=== PATIENT | female | born 2000 | race Two or more races ===

== ENCOUNTER 2024-11-02 12:37 | Inpatient (IN) | payer MEDICAID, SELFPAY ==
[2024-11-02 12:38] VITALS: PULSE 111; RESP 14; O2SAT 99
[2024-11-02 12:44] VITALS: BP 123/61; PULSE 117; RESP 20; TEMP 36.4; O2SAT 97
[2024-11-02 12:45] VITALS: BMI 26.6
--- NOTE | 2024-11-02 12:45 | XR_ITS ---
Examination: CT brain head without contrast. 2-D sagittal coronal reconstructions Date and time of exam:November 02, 2024, 1356 hrs. Indications: Seizure activity today CTDI: vol (mGy):14.8 DLP: (mGycm):350 Technique: Multiple CT axial sections of the brain have been obtained, 5 mm slice thickness. Contrast has not been administered. 2-D sagittal, coronal reconstructions have been obtained Low dose protocols were performed. One or more of the following dose reduction techniques were used; automated exposure control, adjustment of the mA and/or KV according to patient size, use of iterative reconstruction technique. Findings: No significant ventricular enlargement. Intra-axial or extra-axial hemorrhage density is not seen. No mass effect or midline shift Basal cisterns are not remarkable. Fourth ventricle is midline. Cranial vault intact. Impression: Negative for acute hemorrhage, mass effect or midline shift
--- NOTE | 2024-11-02 12:45 | EKG_ITS ---
[facility] Test Date: 2024-11-02 Pat Name: JERI ROTH Department: Room: - Gender: Female Cytopathology Technologist: : 2000 Requested By: Jose Luis Elizalde Order Number: [id number] Reading MD: Jose Luis Elizalde Measurements Intervals Gibbs Rate: 115 P: 51 MA: 153 QRS: 40 QRSD: 73 T: 18 QT: 327 QTc: 453 Interpretive Statements SINUS TACHYCARDIA POSSIBLE LEFT ATRIAL ENLARGEMENT [-0.1mV P-WAVE IN V1/V2] NONSPECIFIC ST & T-WAVE ABNORMALITY ABNORMAL RHYTHM ECG Compared to ECG 10/05/2018 07:51:43 T-wave abnormality now present Sinus rhythm no longer present Sinus arrhythmia no longer present /store/S0/[id number].pdf
--- NOTE | 2024-11-02 12:45 | XR_ITS ---
Examination: CT cervical spine without contrast 2-D sagittal reconstructions 2-D coronal reconstructions 3-D reconstructions. Exam date and time:November 02, 2024, 1359 hrs. Indications: Seizure activity today with neck pain CTDI:vol (mGy) 14.8 DLP: (mGycm) 315 Technique: Multiple 2 mm axial sections of the cervical spine have been obtained. The coronal and sagittal reconstructions have been obtained. 3-D reconstructions have been obtained. Low dose protocols were performed. One or more of the following dose reduction techniques were used; automated exposure control, adjustment of the mA and/or KV according to patient size, use of iterative reconstruction technique. Findings: Axial sections demonstrate intact base of the skull. C1 exhibit satisfactory relationship to the odontoid. No acute cervical vertebral body fracture seen. Alignment posterior spinous processes satisfactory. Impression: No acute cervical fracture.
--- NOTE | 2024-11-02 12:56 | XR_ITS ---
Examination: Wrist, right 2 views Technique: Wrist AP, lateral 2 views Date and time of exam: November 02, 2024, 1315 hrs. Indications: Patient fell today with injury to the wrist, wrist pain Findings: No fracture or dislocation No foreign body Impression: No fracture or dislocation.
--- NOTE | 2024-11-02 12:56 | XR_ITS ---
Examination: AP chest single view Technique one AP portable semiupright chest single view Date and time: November 02, 2024, 1320 hrs. Comparison April 03, 2020. Indications: Patient fell today with injury to the chest, chest pain. Findings: Normal heart size. The film is rotated RPO. No pneumothorax. Bones of the shoulders, clavicles, ribs appear intact Impression: No pneumothorax pulmonary contusion or hemothorax.
--- NOTE | 2024-11-02 12:56 | XR_ITS ---
Examination: Right elbow 3 views Technique: Elbow AP, oblique, lateral 3 views Exam date and time: November 02, 2024, 1315 hrs. Indications: Patient fell today with injury to the elbow, elbow pain. Findings: No fracture or dislocation. No foreign body Impression: No fracture or dislocation..
--- NOTE | 2024-11-02 12:56 | XR_ITS ---
Examination: Shoulder,right, 3 views Technique: Shoulder AP internal rotation, AP external rotation, Y view shoulder, 3 views Exam date and time :November 02, 2024, 1315 hrs. Indications: Patient fell today with injury to the shoulder, shoulder pain. Findings: No shoulder fracture or dislocation. No AC joint separation. Impression: No shoulder fracture or dislocation.
[2024-11-02 13:02] LABS: Basophils # (Auto) 0.0 Thou/mm3 (0.0-0.2); Basophils % (Auto) 0 % (0-2.5); Eosinophils # (Auto) 0.2 Thou/mm3 (0.0-0.5); Eosinophils % (Auto) 2 % (0-10); Hematocrit 42.0 % (36.0-46.0); Hemoglobin 14.1 g/dL (12.0-16.0); Immature Granulocytes Auto 0.03 Thou/mm3 (0.00-0.00); Lactate (Lactic Acid) 6.4 mMol/L (0.4-2.0); Lymphocytes # (Auto) 3.1 Thou/mm3 (1.0-4.8); Lymphocytes % (Auto) 31 % (10-50); Mean Corpuscular HGB Conc 33.6 g/dl (31.0-37.0); Mean Corpuscular Hemoglobin 29.1 pg (25.0-35.0); Mean Corpuscular Volume 87 fL (80-100); Monocytes # (Auto) 0.9 Thou/mm3 (0.0-0.8); Monocytes % (Auto) 9 % (0-12); Neutrophils # (Auto) 5.7 Thou/mm3 (1.8-7.7); Neutrophils % (Auto) 57 % (37-80); Nucleated Red Blood Cell # 0.00 Thou/mm3 (0.00-0.00); Nucleated Red Blood Cell % 0 /100 WBC (0); Platelet Count 300 Thou/mm3 (140-440); RDW Standard Deviation 40.5 fL (36.4-46.3); Red Blood Count 4.85 Miln/mm3 (4.00-5.20); White Blood Count 10.0 Thou/mm3 (3.6-11.0)
--- NOTE | 2024-11-02 13:05 | PD.EDADULT ---
ED General RME/HPI General Chief complaint: Seizure Stated complaint: ALTERED Time Seen by Provider: 11/02/24 12:45 Arrival date/time: 11/02/24 12:37 RME / HPI RME / HPI narrative: 24-year-old female with no relevant past medical history was seen in the ER after being brought by ambulance due to seizure-like activity today. Patient was in agonizing pain and was agitated initially, but was able to calm down shortly after. Patient's was at bedside and stated that patient this morning had complained of a headache around 10 AM at [facility] and that subsequently had a fall and they witnessed seizure-like activity. 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 She has also felt very hot for the past few days, but does not recount having a fever or chills. Also states she has been vomiting and diarrhea, but denies abdominal pain. She stated that she started a new medication today to decrease her breast milk production. Patient's last menstrual period was last month on and she had her last child last year. Daughter was sick last week. Patient currently has neck pain, headache, photophobia, and right arm pain. Denies alcohol, drugs, or smoking. Related Data Previous Rx's ?Medication ?Instructions ?Recorded ibuprofen 600 mg tablet 600 mg PO Q6H #30 tabs 12/25/23 Allergies Allergy/AdvReac Type Severity Reaction Status Date / Time bee pollen Allergy Severe Unconscious Verified 12/25/23 09:26 Penicillins Allergy Unknown Verified 12/25/23 09:26 milk AdvReac Severe Diarrhea Verified 12/25/23 09:26 Sulfa (Sulfonamide AdvReac Severe Anaphylaxis Verified 12/25/23 09:26 Antibiotics) Review of Systems Review of Systems Systems Reviewed: All systems reviewed, normal except as documented Past Medical History Past Medical History NEUROLOGIC: Positive Seizures; Negative Neurological Disorders CARDIAC: Negative Cardiac Disorders or Congestive Heart Failure RESPIRATORY: Negative Chronic Obstructive Pulmonary Disease (COPD) or Asthma GASTROINTESTINAL: Negative Gastrointestinal Disorders or Hepatitis GENITOURINARY: Negative Genitourinary Disorders or Renal Disease REPRODUCTIVE: Positive Genital Herpes and Previous Pregnancies (3, 2 children); Negative Pelvic Inflammatory Disease MUSCULOSKELETAL: Negative Musculoskeletal Disorders ENDOCRINE: Negative Endocrine Disorders, Diabetes Mellitus Type 1 or Diabetes Mellitus Type 2 HEMATOLOGIC: Negative Blood Disorders or Sickle Cell Disease PSYCHO/SOCIAL: Positive Post Traumatic Stress Disorder; Negative Psychiatric Problems, Schizophrenia, Recreational Drug Use, Bipolar Disorder, Depression, Anxiety, Behavior Problems, Self-Mutilation, Attention Deficit Disorder, Attention Deficit Hyperactivity Disorder, Depression or Eating Disorder OTHER HISTORY: Positive Chicken Pox; Negative Hospitalization, Autoimmune Disease, Down Syndrome, Autism, Developmental Delay, Shingles, Falls, Blood Transfusions, Blood Transfusion Reaction, Anesthesia Reactions, Organ Transplant, Chemotherapy, Radiation Therapy, Hyperbaric Therapy, MRSA, VRSA, Vancomycin-Resistant Enterococci, Human Immunodeficiency Virus (HIV), Measles, Mumps, Rubella (Citizen [place] Measles), Pertussis, Clostridium Difficile or Cancer Family History FAMILY HISTORY: Positive Family Psychiatric Problems and Family Respiratory Disorders; Negative Family Cardiac Disorders, Family Gastrointestinal Problems, Family Cancer, Family Surgery or Family Anesthesia Reaction Surgical History SURGICAL: Negative Section or Organ Transplant Social History SMOKING STATUS: Never smoker SUBSTANCE USE: former substance user and marijuana (Continue to smoke daily) ED Exam Narrative Physical exam: Gen: A&O X 3, moderate distress HEENT: With eyes closed throughout the exam, NCAT, EOMI, Pupils reactive JULIO CESAR, not icteric. External ears normal. No rhinorrhea. Moist mucous membranes. Neck: Supple, decreased anterior motion due to pain/stiffness, no observable masses. Lungs: No Respiratory distress, clear bilateral. CV: tachycardic, no murmurs. Abdomen: Soft, nondistended, No rebound tenderness. MSK: No joint swelling, pain in R UE and posterior neck with stiffness, no redness, peripheral pulses presents, lumbar with no edema. Skin: No rashes, petechiae, lesions. Neuro: No focal neurological deficits appreciated, sensory and motor intact. Course Quality Measures none Orders Category Date Time Status COVID-19 Screening Questionnaire NOW Care 11/02/24 16:55 Active Decision to Admit X1 Care 11/02/24 16:55 Completed EKG (ED ONLY) *Do not use* NOW Care 11/02/24 12:45 Completed Consult to Neurology / Tele-Neurology Stat Cons 11/02/24 13:[address] cervical spine wo con Stat Exams 11/02/24 12:[address] head/brain wo con Stat Exams 11/02/24 12:45 Completed CXRP [XR chest 1V portable] Stat Exams 11/02/24 12:56 Completed EKG (ED Only) Stat Exams 11/02/24 12:45 Draft XR elbow RT 2V Stat Exams 11/02/24 12:56 Completed XR shoulder RT 1V Stat Exams 11/02/24 12:56 Completed XR wrist RT 2V Stat Exams 11/02/24 12:56 Completed Alcohol, Urine Stat Lab 11/02/24 13:48 Completed Blood Culture (Lab) Stat Lab 11/02/24 17:19 Received CBC [CBC] Stat Lab 11/02/24 12:45 Completed CK [Creatine Kinase] Stat Lab 11/02/24 12:45 Completed CMP [Comprehensive Metabolic Panel] Stat Lab 11/02/24 12:45 Completed Drug Screen,Urine Stat Lab 11/02/24 13:48 Completed FLU A&B [Influenza A & B Rapid Panel] Stat Lab 11/02/24 17:00 Ordered HCG Qualitative,Urine Stat Lab 11/02/24 13:48 Completed HSV1 IgG Type Specific Ab* Stat Lab 11/02/24 17:20 Received HSV2 IgG Type Specific Ab* Stat Lab 11/02/24 17:20 Received Lactate (Lactic Acid) Stat Lab 11/02/24 12:45 Completed Lactic Acid, 3 HR Stat Lab 11/02/24 16:50 Completed Lipase Stat Lab 11/02/24 12:45 Completed Magnesium Stat Lab 11/02/24 12:45 Completed UA [Urinalysis] Stat Lab 11/02/24 13:48 Completed Acyclovir Inj [Zovirax Inj] 770 mg Med 11/02/24 17:00 Active Sodium Chloride 0.9% [Ns] 100 ml IV Q8HR Ketorolac Inj [Toradol Inj] Med 11/02/24 16:42 Discontinued 30 mg IVP X1 ONE Midazolam Inj [Versed Inj] Med 11/02/24 13:01 Active 2 mg IVP Q1HR PRN Morphine Inj Med 11/02/24 16:42 Discontinued 2 mg IVP X1 ONE Morphine Inj Med 11/02/24 15:12 Discontinued 3 mg IVP X1 ONE Ondansetron Inj [Zofran Inj] Med 11/02/24 13:05 Discontinued 4 mg IVP X1 ONE POTASSIUM CHL 10 mEq IVPB [Kcl Ivpb] Med 11/02/24 13:30 Discontinued 10 meq in 100 ml IV Q1H Sodium Chloride 0.9% 1000 ml [Ns] 1,000 ml Med 11/02/24 13:03 Discontinued IV 999 mls/hr Vancomycin Pharmacy to Dose Med 11/02/24 16:45 Active 1 each IV QDAY PRN Vancomycin/Water 1Gm Ivpb 200 ml Med 11/02/24 17:00 Active IV X1 cefTRIAXone [Rocephin] 2 gm Med 11/02/24 21:00 Active SODIUM CHLORIDE 0.9% (Popper) [Ns 0.9% (P)] 50 ml IV BID Vital Signs Vital signs: Vital Signs Temperature 97.5 F 11/02/24 12:44 Pulse Rate 117 H 11/02/24 12:44 Respiratory Rate 20 11/02/24 12:44 Blood Pressure 123/61 11/02/24 12:44 Pulse Oximetry (%) 97 11/02/24 12:44 Oxygen Delivery Method Room Air 11/02/24 12:44 Discharge Plan Plan Patient Disposition: Admit Acute Care w/in Hospital Prescriptions/Referrals Prescriptions/Med Rec: No Action ibuprofen 600 mg tablet 600 mg PO Q6H Qty: 30 0RF Referrals: No Primary/Family,Physician [Primary Care Provider] - In 1 week Problem List Clinical Impression: Meningeal sign, Seizure-like activity Patient/Caregiver Discharge Instructions Print Language: Hebrew Stand Alone Forms: [employer] Award Info., Patient Portal Info Letter MDM Narrative [facility] hospital course: 13:03: Ordered IV fluids and Zofran. 13:09: Consulted teleneurology given patient's seizure-like activity and findings concerning for meningitis. 13:30: Labs and imaging were reviewed. Potassium was low therefore repleted with IV potassium 40 mg. Imaging did not reveal any fractures or intracranial pathology. 15:09: Spoke with teleneurology who stated to proceed with lumbar puncture pending patient's symptoms of stiff neck with photophobia was concerning for possible meningitis therefore had to be rule out as well as subarachnoid hemorrhage had to be rule out. Advised to discontinue bromocriptine as it could have been because of possible seizure-like activity. Also to avoid any medication that can lower seizure threshold. Additional imaging recommend included MRI and EEG. 15:12 ordered morphine. 15:40: Attempted lumbar puncture at the patient was positioned and prepared. Was unsuccessful, started acyclovir, ceftriaxone, and vancomycin for empirical treatment of meningitis. 16:42: Ordered 2 mg morphine and 30 mg Toradol for patient's headache and neck pain. 16:55: Spoke with IM team for admission. Will see patient for admission. Case disclosed with Attending Dr. Kenroy Elizalde PGY2 Disclaimer: Even though this this note was dictated by speech recognition and even though it was carefully revised there may still be minor errors in coke production heater due to voice recognition software. Medication Administration(s) Medication Administration History Acyclovir Sodium 770 mg/ (Sodium Chloride) 115.4 mls @ 99.986 mls/hr IV Q8HR ALDEN Stop: 11/09/24 16:59 Last Admin: 11/02/24 17:27 Dose: 99.986 mls/hr Documented By: ER Ceftriaxone Sodium 2 gm/ (Sodium Chloride) 50 mls @ 100 mls/hr IV BID ALDEN Stop: 11/09/24 20:59 Vancomycin HCl (Vancomycin/Water 1gm Ivpb) 200 mls @ 120 mls/hr IV X1 ONE Stop: 11/02/24 18:39 Midazolam HCl (Midazolam Inj 1 Mg/Ml Vial 2 Ml) 2 mg IVP Q1HR PRN PRN Reason: Seizure Activity Stop: 11/07/24 13:00 Pharmacy Consult (Vancomycin Pharmacy To Dose 1 Each Each) 1 each IV QDAY PRN PRN Reason: CONSULT Stop: 12/02/24 16:44 Discontinued Medications Sodium Chloride (Ns) 1,000 mls @ 999 mls/hr IV .Q1H1M ONE Stop: 11/02/24 14:03 Last Infusion: 11/02/24 14:08 Dose: Infused Documented By: Admin: 11/02/24 13:10 Dose: 999 mls/hr Documented By: ER Potassium Chloride (Kcl Ivpb) 10 meq in 100 mls @ 100 mls/hr IV Q1H ALDEN Stop: 11/02/24 17:29 Last Admin: 11/02/24 16:35 Dose: 50 mls/hr Documented By: Infusion: 11/02/24 15:46 Dose: Infused Documented By: Admin: 11/02/24 14:46 Dose: 100 mls/hr Documented By: ER Ketorolac Tromethamine (Ketorolac Inj 30 Mg/Ml Vial) 30 mg IVP X1 ONE Stop: 11/02/24 16:43 Last Admin: 11/02/24 17:26 Dose: 30 mg Documented By: ER Morphine Sulfate (Morphine Sulf Inj 10 Mg/Ml Vial) 3 mg IVP X1 ONE Stop: 11/02/24 15:13 Last Admin: 11/02/24 15:30 Dose: 3 mg Documented By: ER Morphine Sulfate (Morphine Sulf Inj 10 Mg/Ml Vial) 2 mg IVP X1 ONE Stop: 11/02/24 16:43 Ondansetron HCl (Ondansetron Inj 2 Mg/Ml Inj 2 Ml) 4 mg IVP X1 ONE; Protocol Stop: 11/02/24 13:06 Last Admin: 11/02/24 13:10 Dose: 4 mg Documented By: ER
[2024-11-02] MEDS: SODIUM CHLORIDE 0.9% 1000 ML 1,000 ML 999 ML IV (13:10)
[2024-11-02] MEDS: ONDANSETRON INJ 2 MG/ML INJ 2 ML 4 MG IVP ×2 (13:10→19:48)
[2024-11-02 13:28] LABS: Alanine Aminotransferase 13 U/L (10-49); Albumin, Serum 4.9 gm/dL (3.5-5.0); Albumin/Globulin Ratio 1.8 (1.2-2.2); Alkaline Phosphatase 77 U/L (46-116); Anion Gap 17 (7-16); Aspartate Amino Transferase 20 U/L (0-34); BUN/Creatinine Ratio 13 Ratio (12-20); Bilirubin,Total 0.7 mg/dL (0.3-1.2); Blood Urea Nitrogen 13 mg/dL (9-23); Calcium 9.5 mg/dL (8.3-10.6); Calcium (Corrected) 9.5 mg/dL (8.5-10.1); Carbon Dioxide 18.9 mMol/L (20.0-31.0); Chloride 106 mMol/L (98-107); Creatine Kinase 185 U/L (34-171); Creatinine (Component) 1.0 mg/dL (0.6-1.3); Estimated Creatinine Clearance 91.3 mL/min (>60); Globulin 2.7 gm/dL (2.3-3.5); Glucose 148 mg/dL (74-106); Lipase 42 U/L (12-53); Osmolality,Calculated 286 (275-295); Potassium 2.9 mMol/L (3.4-5.1); Sodium 142 mMol/L (136-145); Total Protein 7.6 gm/dL (5.7-8.2); eGFR > 60 See Note
[2024-11-02 13:46] LABS: Magnesium 1.9 mg/dL (1.6-2.6)
[2024-11-02 13:53] LABS: Collection Type, Urine Clean Catch
[2024-11-02 14:13] LABS: Bilirubin,Urine Negative (Negative); Blood,Urine Negative (Negative); Clarity,Urine Clear (Clear/Hazy); Color,Urine Yellow (Lt Yel-Yel); Glucose, Urine Negative (Negative); HCG Qualitative,Urine Negative; Ketones,Urine 1+ (Negative); Leukocyte Esterase,Urine Negative (Negative); Nitrite,Urine Negative (Negative); PH,Urine 6.0 (5.0-7.0); Protein,Urine 1+ (Neg - Trace); RBC,Urine 2 /hpf (0-3); Specific Gravity,Urine 1.036 (1.001-1.035); Squamous Epithelial Cell,Urine 1 /hpf (0-5); Urobilinogen,Urine Negative mg/dL (0.0-1.0); WBC,Urine 2 /hpf (0-5)
[2024-11-02 14:20] VITALS: BP 104/63; PULSE 88; RESP 16; TEMP 36.6; O2SAT 95
[2024-11-02 14:37] LABS: Alcohol, Urine Negative (Negative); Amphetamine/Methamp Scrn,U Negative (Negative); Barbiturate Screen,Urine Negative (Negative); Benzodiazepines Screen,Urine Negative (Negative); Benzoylecgonine Screen, Ur Negative (Negative); Fentanyl Screen,Urine Negative (Negative); Opiate Screen,Urine Negative (Negative); THC Screen,Urine Positive (Negative)
[2024-11-02] MEDS: POTASSIUM CHL 10 mEq IVPB 10 MEQ/100 ML BAG 100 MEQ IV (14:46)
--- NOTE | 2024-11-02 14:47 | PC.NURSE ---
Dr. Logan teleneurology at bedside assessing patient at this time.
[2024-11-02] MEDS: MORPHINE SULF INJ 10 MG/ML VIAL 3 MG IVP (15:30)
[2024-11-02 15:55] LABS: Reflex Lactate? Y
[2024-11-02 16:06] VITALS: BP 104/60; PULSE 100; RESP 18; TEMP 36.6; O2SAT 98
[2024-11-02] MEDS: POTASSIUM CHL 10 mEq IVPB 10 MEQ/100 ML BAG 50 MEQ IV ×3 (16:35→21:48)
[2024-11-02 17:02] LABS: Lactic Acid, 3 HR 0.9 mMol/L (0.4-2.0)
[2024-11-02] MEDS: KETOROLAC INJ 30 MG/ML VIAL IVP (17:26)
[2024-11-02] MEDS: SODIUM CHLORIDE 0.9% IV ×2 (17:27→22:44)
[2024-11-02] MEDS: ACYCLOVIR IV ×2 (17:27→22:44)
--- NOTE | 2024-11-02 17:30 | ESHP_ITS ---
<Statement entered by Miah Thacker MD - 11/02/24 18:13> Senior Resident Attestation: I supervised/discussed management plan with business development intern physician Dr. Strauss, and was involved in the care of this patient. I personally saw and examined the patient and discussed the assessment and plan with the entire medicine team, including my attending. I agree with the assessment and plan as documented. Patient is 24 years old female with past medical history of PTSD, substance abuse and remote history of episode of seizure who presented to the emergency room due to episode of seizure-like activity. She reported no fever or chills. She endorsed photophobia. She cannot recall the event clearly and her reports that she lost consciousness and he was thinking she might be an anaphylactic reaction and gave her EpiPen dose. She was recently prescribed bromocriptine for excessive and started this medication today, shortly before seizure event happened. She also complains of pain of her right side of the body. She was found to have neck stiffness but negative Kernig and Brudzinski signs. Imaging was unremarkable. Labs show lactic acidosis and elevated CK. Attempt to perform LP was unsuccessful in the emergency room. Teleneuro was consulted and recommended to admit patient for possible meningitis versus seizures. Brain MRI, LP and EEG were ordered and patient was started on ceftriaxone, vancomycin and valacyclovir. Patient's care was discussed with attending physician, Dr. Adler. Miah Thacker MD PGY-3. Documentation for date of: 11/02/24 HPI History of Present Illness Chief complaint: Seizure History of present illness: Mrs. Nathan is a 24F with remote history of seizure 5 years ago BIBA shortly after having a seizure-like activity today. Pt stated that she was recently prescribed bromocriptine 2.5mg PO QD from her PCP for her excessive left breast milk production, and shortly after she took her first bromocriptine tab this morning she started having headache, nausea, vomiting, photosensitivity, and neck pain. She denies any recent sick contact, fever, diarrhea, or abdominal pain. Of note, pt's administer EpiPen as he thought she is having an episode of anaphylactic response, which he stated in the past she has had a seizure episode secondary to anaphylaxis. Upon further examination, pt reports right side arm and leg pain, but denies trauma, fall, or injury to head. Pt does have loss of consciousness as she does not recall events shortly after her seizure-like episode. No focal neuro deficit noted on exam. She was admitted for seizure workup. ED Course In the ED, WBC 10.0, Hgb, 14.1. Na142, K2.9, Bicarb 18.9, Anion gap 17, BUN 13, Cr 1.0. Glucose 148. Initial lactic acid 6.4, repeat lactate 4H after 0.9. UA 1+ protein, 1+ ketone with specific gravity of 1.036. UDS positive for THC. EKG Sinus tach at rate of 115. C-spine CT, head CT, CXR, elbow XR, shoulder XR, wrist XR all unremarkable. TeleNeuro consulted, would like work up for bacteria meningitis. MRI, EEG ordered. Plan for IR LP tmr. ROS * Constitutional: appears uncomfortable, a/o x 3, denies fever/chills. * GI: +nausea, vomiting. * CV: Denies chest pain or palpitations. * Resp: Denies difficulty breathing, cough, sputum production. * : Denies dysuria, CVA tenderness, suprapubic tenderness. * Neuro: Denies dizziness, no focal deficits. Past Medical History * Remote hx of seizure 5 years ago Social History * Lives at home, independent baseline. * Denies alcohol. Hx of smoking and cocaine use. Surgical History * Laparoscopic salpingectomy, bilateral Allergies * Sulfa drug Home Meds * Bromocriptine 2.5mg PO QD Past Medical History Past Medical History NEUROLOGIC: Positive Seizures; Negative Neurological Disorders CARDIAC: Negative Cardiac Disorders or Congestive Heart Failure RESPIRATORY: Negative Chronic Obstructive Pulmonary Disease (COPD) or Asthma GASTROINTESTINAL: Negative Gastrointestinal Disorders or Hepatitis GENITOURINARY: Negative Genitourinary Disorders or Renal Disease REPRODUCTIVE: Positive Genital Herpes and Previous Pregnancies (3, 2 children); Negative Pelvic Inflammatory Disease MUSCULOSKELETAL: Negative Musculoskeletal Disorders ENDOCRINE: Negative Endocrine Disorders, Diabetes Mellitus Type 1 or Diabetes Mellitus Type 2 HEMATOLOGIC: Negative Blood Disorders or Sickle Cell Disease PSYCHO/SOCIAL: Positive Post Traumatic Stress Disorder; Negative Psychiatric Problems, Schizophrenia, Recreational Drug Use, Bipolar Disorder, Depression, Anxiety, Behavior Problems, Self-Mutilation, Attention Deficit Disorder, Attention Deficit Hyperactivity Disorder, Depression or Eating Disorder OTHER HISTORY: Positive Chicken Pox; Negative Hospitalization, Autoimmune Disease, Down Syndrome, Autism, Developmental Delay, Shingles, Falls, Blood Transfusions, Blood Transfusion Reaction, Anesthesia Reactions, Organ Transplant, Chemotherapy, Radiation Therapy, Hyperbaric Therapy, MRSA, VRSA, Vancomycin-Resistant Enterococci, Human Immunodeficiency Virus (HIV), Measles, Mumps, Rubella (Turkish Measles), Pertussis, Clostridium Difficile or Cancer Family History FAMILY HISTORY: Positive Family Psychiatric Problems and Family Respiratory Disorders; Negative Family Cardiac Disorders, Family Gastrointestinal Problems, Family Cancer, Family Surgery or Family Anesthesia Reaction Surgical History SURGICAL: Negative Section or Organ Transplant Social History SMOKING STATUS: Never smoker SUBSTANCE USE: former substance user and marijuana (Continue to smoke daily) Exam Vital Signs Temp Pulse Resp BP Pulse Ox O2 Del Method 98 F 100 18 104/60 98 Room Air 11/02/24 16:06 11/02/24 16:06 11/02/24 16:06 11/02/24 16:06 11/02/24 16:06 11/02/24 16:06 Narrative Exam General: Appears uncomfortable, photosensitivity Oriented x 3, Skin: Good turgor, no rash, unusual bruising or prominent lesions Head: Normocephalic, atraumatic, no visible or palpable masses, depressions, or scaring. Eyes: Visual acuity intact, conjunctiva clear, sclera non-icteric, EOM intact, PERRL, no exudates or hemorrhages Mouth: Mucous membranes moist, no mucosal lesions. Pharynx: Mucosa non-inflamed, no tonsillar hypertrophy or exudate Neck: Neck pain, stiffness. Neg Kernig, neg Brudzinski Heart: No cardiomegaly or thrills; regular rate and rhythm, no murmur or gallop Lungs: Clear to auscultation and percussion. No rales, wheeze, or rhonchi Abdomen: Bowel sounds normal, no tenderness, organomegaly, masses, or hernia Back: Spine normal without deformity or tenderness, no CVA tenderness Extremities: No amputations or deformities, cyanosis, edema or varicosities, peripheral pulses intact Results: Labs 11/03/24 04:54 11/03/24 04:54 Labs: Short CBC 11/02/24 Range/Units 12:45 WBC 10.0 (3.6-11.0) Thou/mm3 Hgb 14.1 (12.0-16.0) g/dL Hct 42.0 (36.0-46.0) % Plt Count 300 (140-440) Thou/mm3 BMP 11/02/24 12:45 Sodium 142 Potassium 2.9 L Chloride 106 Carbon Dioxide 18.9 L BUN 13 Creatinine 1.0 Glucose 148 H Calcium 9.5 Cardiac Enzymes 11/02/24 Range/Units 12:45 Total Creatine Kinase 185 H (34-171) U/L Liver Function 11/02/24 Range/Units 12:45 Total Bilirubin 0.7 (0.3-1.2) mg/dL AST 20 (0-34) U/L ALT 13 (10-49) U/L Alkaline Phosphatase 77 (46-116) U/L Albumin 4.9 (3.5-5.0) gm/dL Urine 11/02/24 Range/Units 13:48 Urine Color Yellow (Lt Yel-Yel) Urine Clarity Clear (Clear/Hazy) Urine pH 6.0 (5.0-7.0) Ur Specific [place] 1.036 H (1.001-1.035) Urine Protein 1+ A (Neg - Trace) Urine Glucose (UA) Negative (Negative) Quality Measures Quality Measures VTE prophylaxis Medications Home Medications and Allergies Home Medications ?Medication ?Instructions ?Recorded ?Confirmed ?Type bromocriptine 2.5 mg tablet 2.5 mg PO DAILY DECREASE B REAST 11/02/24 11/02/24 History MILK SUPPLY Allergies Allergy/AdvReac Type Severity Reaction Status Date / Time bee pollen Allergy Severe Unconscious Verified 12/25/23 09:26 Penicillins Allergy Unknown Verified 12/25/23 09:26 milk AdvReac Severe Diarrhea Verified 12/25/23 09:26 Sulfa (Sulfonamide AdvReac Severe Anaphylaxis Verified 12/25/23 09:26 Antibiotics) Visit Medications Acyclovir Sodium 770 mg/ (Sodium Chloride) 115.4 mls @ 99.986 mls/hr IV Q8HR ALDEN Stop: 11/09/24 16:59 Last Admin: 11/02/24 17:27 Dose: 99.986 mls/hr Ceftriaxone Sodium 2 gm/ (Sodium Chloride) 50 mls @ 100 mls/hr IV BID ALDEN Stop: 11/09/24 20:59 Vancomycin HCl (Vancomycin/Water 1gm Ivpb) 200 mls @ 120 mls/hr IV X1 ONE Stop: 11/02/24 18:39 Midazolam HCl (Midazolam Inj 1 Mg/Ml Vial 2 Ml) 2 mg IVP Q1HR PRN PRN Reason: Seizure Activity Stop: 11/07/24 13:00 Pharmacy Consult (Vancomycin Pharmacy To Dose 1 Each Each) 1 each IV QDAY PRN PRN Reason: CONSULT Stop: 12/02/24 16:44 Discontinued Medications Sodium Chloride (Ns) 1,000 mls @ 999 mls/hr IV .Q1H1M ONE Stop: 11/02/24 14:03 Last Infusion: 11/02/24 14:08 Dose: Infused Potassium Chloride (Kcl Ivpb) 10 meq in 100 mls @ 100 mls/hr IV Q1H ALDEN Stop: 11/02/24 17:29 Last Admin: 11/02/24 16:35 Dose: 50 mls/hr Ketorolac Tromethamine (Ketorolac Inj 30 Mg/Ml Vial) 30 mg IVP X1 ONE Stop: 11/02/24 16:43 Last Admin: 11/02/24 17:26 Dose: 30 mg Morphine Sulfate (Morphine Sulf Inj 10 Mg/Ml Vial) 3 mg IVP X1 ONE Stop: 11/02/24 15:13 Last Admin: 11/02/24 15:30 Dose: 3 mg Morphine Sulfate (Morphine Sulf Inj 10 Mg/Ml Vial) 2 mg IVP X1 ONE Stop: 11/02/24 16:43 Ondansetron HCl (Ondansetron Inj 2 Mg/Ml Inj 2 Ml) 4 mg IVP X1 ONE; Protocol Stop: 11/02/24 13:06 Last Admin: 11/02/24 13:10 Dose: 4 mg Assessment & Plan Plan Mrs. Nathan is a 24F with remote history of seizure 5 years ago, recently started taking bromocriptine, admitted for seizure workup and meningitis r/o. P ending LP, MRI, and EEG. #Medication induced seizure Pt reports headache, nausea, vomiting, neck pain/stiffness started shortly right after she took her first bromocriptine 2.5mg pill prescribed by her PCP Hx of seizure 5 years ago 11/02/24: Head CT unremarkable. Initial lactate of 6, rpt lactate of 0.9 4H after. Dx: - Pending EEG and MRI study Tx: - Hold bromocriptine 2.5mg PO - Seizure precaution - Swallow evaluation as needed - Neuro check Q4H - Aspiration precaution - Neuro consult, appreciate recs #Bacterial vs viral meningitis Pt denied any recent sick contact, fever, cough. However, does endorse neck pain/stiffness and photosensitivity, n/v. 11/02/24: C-spine CT, CT head unremarkable. Dx: - Pending LP tmr - CSF fluids - BCx Tx: - Empiric treatment started (Acyclovir, Rocenphin, Vanco) - Neuro consult, appreciate recs #Right sided arm and leg pain, likely musculoskeletal secondary to seizure Pt reports right sided arm and leg pain, denied fall or trauma. 11/02/24: CXR, shoulder XR, wrist XR, elbow XR all negative. Tx: - Pain management as needed. Dispo: Tele DVT prophylaxis: SCDs GI prophylaxis: Protonix 20 Diet: NPO Lines: Peripheral IV Code status: Full code Case discussed with my senior resident Dr. Thacker Case discussed with my attending Dr. Vitor Strauss, PGY 1 Attending Provider Attestation/Addendum I have examined the patient, reviewed labs and imaging findings, discussed the case with the resident(s), and reviewed entered orders. I agree with the plan of care as outlined in this note, with these additional summaries/recommendations: After examination of the patient and review of the clinical data, I feel that this patient needs admission to the hospital for further treatment and evaluation. Patient is a 24-year-old female with a medical history of ? childhood seizures?, anxiety, and remote history of substance abuse presents to [facility] emergency department on 11/02/2024 with chief complaint of seizure-like activity. Patient and seen at bedside. Patient reports she was diagnosed with seizure disorder in childhood secondary to anxiety. She was not placed on antiepileptics. She reports she has not had a seizure in over 5 years. In- house neurology consulted, recommendations appreciated on if antiepileptics required. Order EEG. Continue seizure precautions. Lactic acid was significantly elevated on admission which now has resolved which further supports seizure as etiology of patient's symptoms. Patient was prescribed bromocriptine recently and likely the etiology of seizures. Discontinue bromocriptine. Order MRI brain. Patient also endorses neck stiffness and photophobia concerning for possible meningitis. I suspect patient's symptoms are more related to seizure disorder/bromocriptine than meningitis although cannot be ruled out at this time. Denies sick contacts. Lumbar puncture was attempted x 2 in the ED and was unsuccessful. Order IR LP. Start IV antibiotics and follow-up culture results. Contact precautions. Mild hypokalemia noted and replacement given. Repeat level in AM. Pain management as needed. Continue pain management as needed. Repeat hematology and chemistry panel in AM. Patient and updated on the plan. All questions answered to satisfaction. Please see residents note for additional details and management. Dr. Vitor MD
[2024-11-02 18:00] VITALS: BP 99/49; PULSE 83; RESP 16; TEMP 37.2; O2SAT 97
--- NOTE | 2024-11-02 18:16 | ESOP_ITS ---
PROCEDURES: Procedure Date / Time 11/02/241815 Lumbar Puncture Indication(s): meningeal signs and r/o subarachnoid hemorrhage Informed consent obtained: from patient Time out done, and the following verified: correct patient, side and site, procedure, patient position and implants and/or equipment Patient position: left lateral decubitus Skin prep: Povidone-Iodine 1% and 0.5% Chlorhexidine/Alcohol Local anesthetic used: Lidocaine 1% Amount of anesthesia used (mL): 3 Spinal needle gauge: 20G Interspace used: L4-L5 EBL(ml): 8 Additional comments: My hands were washed immediately prior to the procedure. I wore a surgical cap, mask with protective eyewear, sterile gown and sterile gloves throughout the procedure. The patient was placed in the lateral decubitus L position with help from the nursing staff. The area was cleansed and draped in usual sterile fashion using chlorhexidine and povidone-iodine Anesthesia was achieved with 1% lidocaine. A 20-gauge 3.5-inch spinal needle was placed in the L4-L5 lumbar interspace. After three attempts were made and no CSF was drawn decision was made to abort procedure. Case disclosed with Attending Dr. Kenroy Elizalde PGY2 Disclaimer: Even though this this note was dictated by speech recognition and even though it was carefully revised there may still be minor errors in public transportation inspector due to voice recognition software.
[2024-11-02] MEDS: VANCOMYCIN/WATER 1GM IVPB 200 ML IV (18:34)
[2024-11-02] MEDS: MORPHINE SULF INJ 10 MG/ML VIAL 2 MG IVP (19:49)
[2024-11-02 20:05] VITALS: BP 110/67; PULSE 70; RESP 18; O2SAT 96
--- NOTE | 2024-11-02 20:12 | PC.NURSE ---
report called to Ashley ORLANDO. Pt taken to on monitor by Compa ORLANDO
[2024-11-02] MEDS: cefTRIAXone 2 GM in SODIUM CHLORIDE 0.9% (Popper) 50 ML IV (21:48)
[2024-11-02] MEDS: HYDROcodone/APAP 5/325 TABLET 1 TAB PO (21:54)
[2024-11-02 23:48] LABS: Influenza A Ag Negative; Influenza B Ag Negative
[2024-11-03] VITALS (7 sets, daily range): BP systolic 95–120; BP diastolic 49–69; PULSE 61–96; RESP 14–20; TEMP 35.9–36.3; O2SAT 95–99; BMI 28.6
--- NOTE | 2024-11-03 | XR_ITS ---
Examination: MRI brain without intravenous contrast. Date and time of exam: November 03, 2024 0934 hours INDICATIONS: Seizure episode with focal neurologic deficits November 02, 2024 Technique: Multiple axial and sagittal images of the brain obtained. Siemens high-resolution 1.5 Mary short bore scanners utilized. Sagittal sections, T1-weighted, TR 500, TE 14, are performed. Axial sections proton-density and T2-weighted have been obtained. Inversion recovery axial images, TR 9, 260, TE 111, TI 2500. Diffusion weighted images, axial sections, TR 4800, TE 128, B value 1000 Axial sections, ADC map, TR 4800, TE 128 Findings: Enlargement of the sella turcica is not present. The optic chiasm and infundibular are not remarkable. Prepontine and interpeduncular cisterns are not enlarged. There is no localized enlargement of the medulla or gennaro. Fourth ventricle and cerebellar tonsils appear normal in position. No subacute area of hemorrhage density is seen. Mass in the cerebellopontine angle region is not evident. Globes symmetrical. Orbital musculature including medial lateral rectus muscles do not exhibit abnormality. Diffusion-weighted images demonstrate no focus of restricted diffusion. Increased white matter signal not seen Mass effect upon the ventricular system is not identified. Impression: Negative for acute hemorrhage mass effect or midline shift No acute infarct No MR findings diagnostic for demyelinating disease
[2024-11-03 00:41] LABS: Potassium 3.6 mMol/L (3.4-5.1)
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
[2024-11-03] MEDS: SODIUM CHLORIDE 0.9% IV (05:46)
[2024-11-03] MEDS: ACYCLOVIR IV (05:46)
[2024-11-03] MEDS: ACETAMINOPHEN 325 MG TABLET 650 MG PO ×2 (05:57→16:23)
[2024-11-03 06:17] LABS: Basophils # (Auto) 0.0 Thou/mm3 (0.0-0.2); Basophils % (Auto) 0 % (0-2.5); Eosinophils # (Auto) 0.2 Thou/mm3 (0.0-0.5); Eosinophils % (Auto) 5 % (0-10); Hematocrit 35.2 % (36.0-46.0); Hemoglobin 11.6 g/dL (12.0-16.0); Immature Granulocytes Auto 0.01 Thou/mm3 (0.00-0.00); Lymphocytes # (Auto) 1.7 Thou/mm3 (1.0-4.8); Lymphocytes % (Auto) 37 % (10-50); Mean Corpuscular HGB Conc 33.0 g/dl (31.0-37.0); Mean Corpuscular Hemoglobin 28.9 pg (25.0-35.0); Mean Corpuscular Volume 88 fL (80-100); Monocytes # (Auto) 0.6 Thou/mm3 (0.0-0.8); Monocytes % (Auto) 12 % (0-12); Neutrophils # (Auto) 2.1 Thou/mm3 (1.8-7.7); Neutrophils % (Auto) 45 % (37-80); Nucleated Red Blood Cell # 0.00 Thou/mm3 (0.00-0.00); Nucleated Red Blood Cell % 0 /100 WBC (0); Platelet Count 181 Thou/mm3 (140-440); RDW Standard Deviation 42.0 fL (36.4-46.3); Red Blood Count 4.01 Miln/mm3 (4.00-5.20); White Blood Count 4.7 Thou/mm3 (3.6-11.0)
[2024-11-03 06:32] LABS: INR 1.1 (0.9-1.3); Partial Thromboplastin Time 28.5 Seconds (22.0-36.0); Prothrombin Time 11.9 Seconds (9.0-12.2)
[2024-11-03 07:14] LABS: Alanine Aminotransferase 8 U/L (10-49); Albumin, Serum 3.8 gm/dL (3.5-5.0); Albumin/Globulin Ratio 1.9 (1.2-2.2); Alkaline Phosphatase 60 U/L (46-116); Anion Gap 10 (7-16); Aspartate Amino Transferase 15 U/L (0-34); BUN/Creatinine Ratio 13 Ratio (12-20); Bilirubin,Total 0.6 mg/dL (0.3-1.2); Blood Urea Nitrogen 10 mg/dL (9-23); Calcium 8.5 mg/dL (8.3-10.6); Calcium (Corrected) 8.7 mg/dL (8.5-10.1); Carbon Dioxide 22.7 mMol/L (20.0-31.0); Cardiac Risk Estimate 2.4 RATIO (3.7-5.6); Chloride 110 mMol/L (98-107); Cholesterol 101 mg/dL (132-200); Creatinine (Component) 0.8 mg/dL (0.6-1.3); Estimated Creatinine Clearance 117.9 mL/min (>60); Globulin 2.0 gm/dL (2.3-3.5); Glucose 87 mg/dL (74-106); HDL Cholesterol 42 mg/dL (40-60); LDL Cholesterol,Calculated 51 mg/dL (0-130); Magnesium 1.6 mg/dL (1.6-2.6); Osmolality,Calculated 282 (275-295); Phosphorous 3.6 mg/dL (2.4-5.1); Potassium 3.7 mMol/L (3.4-5.1); Sodium 143 mMol/L (136-145); Thyroid Stimulating Hormone 0.45 uIU/mL (0.55-4.78); Total Protein 5.8 gm/dL (5.7-8.2); Triglycerides 41 mg/dL (30-150); eGFR > 60 See Note
[2024-11-03 07:16] LABS: Glucose Estimated Average 111 mg/dL (80-131); Hemoglobin A1C 5.5 % Hgb (4.8-6.0)
--- NOTE | 2024-11-03 08:22 | XR_ITS ---
Examination: Fluoroscopically guided diagnostic lumbar puncture AP lumbar spine 3 views Fluoroscopy Date and time: November 03, 2024 1256 hours INDICATIONS: Diagnosis meningitis TECHNIQUE AND FINDINGS: Informed consent provided. Timeout performed. Skin prepped over the lower back and sterile drape applied hand hygiene 1% lidocaine administered for local anesthesia Utilizing fluoroscopic guidance successful diagnostic puncture at the L5-S1 level Estimated opening pressure 10 10 cc clear fluid withdrawn and sent to laboratory for analysis Fluoroscopy 0.4 minute radiation dose 20.96 milligray 3 spot fluoroscopic lumbar spine films IMPRESSION: Successful fluoroscopically guided diagnostic lumbar puncture
--- NOTE | 2024-11-03 08:42 | PC.SS ---
Patient Debi Nathan is a 24 year old female admitted for Seizures. SS met with patient at bedside to discuss discharge plan and verify demographic information. Patient reports she lives at home with family. Patient reports his , Sam Call is surrogate decision maker, [phone]. Patient reports she does not utilize any source of DME to assist with ambulation. Patient is able to complete all ADL's independently. Choice of pharmacy is [facility]. PCP is Ricardo Farias. At time of discharge patient will return home. will provide transportation. Discharge Plan: Home Next of kin: , Sam Call
[2024-11-03] MEDS: cefTRIAXone 2 GM in SODIUM CHLORIDE 0.9% (Popper) 50 ML IV ×2 (08:53→20:02)
[2024-11-03] MEDS: HYDROcodone/APAP 5/325 TABLET 1 TAB PO ×3 (08:53→23:43)
[2024-11-03 09:57] LABS: Free T4 (Free Thyroxine) 1.06 ng/dL (0.89-1.76)
[2024-11-03] MEDS: VANCOMYCIN/D5W 1,250 MG IVPB 250 ML 120 MG IV ×2 (12:02→21:32)
--- NOTE | 2024-11-03 12:06 | RESP.EEG ---
EEG COMPLETED AND READY FOR REVIEW
--- NOTE | 2024-11-03 13:38 | PCS.ST ---
As Needed Speech referral received. NPO today for procedure. Will follow up tomorrow if needed.
[2024-11-03 14:29] LABS: Coccid Serology, CF CSF (UCD)* See Sep Rpt
[2024-11-03 14:52] LABS: CSF Mononuclear 100.0 %; CSF Red Blood Cell 0 /cmm; CSF White Blood Cell 2 /cmm
[2024-11-03 15:04] LABS: Glucose,CSF 58 mg/dL (40-70); Protein Total,CSF 31 mg/dL (8-32)
[2024-11-03 15:11] LABS: CSF Cell Count Tube # Tube # 4; CSF Color Colorless (Colorless)
[2024-11-03] MEDS: ACYCLOVIR INJ 700 MG in SODIUM CHLORIDE 0.9% 100 ML 114 MG IV ×2 (15:36→21:32)
--- NOTE | 2024-11-03 15:45 | PD.TNEUROPRO ---
Tele Neuro Progress Note Progress Note Date 11/03/24 [facility] Tele[facility] Progress Note Date of Service 11/03/2024 Presentation: Based on previous neurology note(s)?? 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 Ddx includes provoked seizure by medication adverse effect vs possible meningitis, workup pending Interval history: 11/03/2024: CSF WBC 2, RBC 0, glucose 58, protein 31, viral panel pending No events overnight Impression: History of Psychogenic Nonepileptic Seizures Headache and seizures Recommendations: (Primary Team to order Controlled Medications) Unless specifically noted I Agree with Impression and Plan from previous Neurology note/consult. 1- Brain MRI No Acute Intracranial Abnormality reported. 2- Routine EEG report Pending 3- Seizure precautions per state law (inpatient and outpatient) as reference please refer to https://www.epilepsy.com/lifestyle/kjdwsgq-kas-clajgrnbgofcfr/laws/ 4- Antiepileptic drug: Can hold off on Antiepileptic Drug till workup is completed (unless patient has another clinical event consistent with seizure) 5- Give Lorazepam 2 mg IV PRN for seizures > 3 min or > 3 episodes in one hour. Don't give more than 6-8 mg total in 24 hour period). If possible Please avoid aminophylline, theophylline, isoniazid, lindane, metronidazole, nalidixic acid, meropenem/imipenem, Quinolone antibiotics, cefepime, TCAs, bupropion, cyclosporine, chlorambucil, tramadol, clozapine, or other drugs which can lower seizure threshold. 6- follow-up on CSF viral panel [facility] Neurologist will follow up with results. Please contact [facility] Navigator to reach me if further questions/concerns arise. Examination: Examination done through interactive audio and video telecommunications with the assist of bedside nursing (when available) awake, alert, Oriented x3 speech no aphasia Extraocular movements intact face symmetric arms no drift (10s) coordination intact in finger to nose Patient / Family was informed the Neurology Consult would occur via TeleHealth consult by way of interactive audio and video telecommunications and consented to receiving care in this manner. ? Patient is being evaluated for possible acute neurologic impairment and high probability of imminent or life - threatening deterioration. I spent total of 15 minutes providing care to this patient, including time for face to face visit via telemedicine, review of medical records, imaging studies and discussion of findings with providers, the patient and / or family. ? ? Dr Damir Stearns ? ? [facility] For Inpatient follow-up with [facility] physician please call [facility] . This is not an outpatient service. Post hospital discharge, please contact hospital directly. ? Please do not communicate with [facility] physicians via secure chat. If you have any questions, Please contact [facility] Please call or reconsult our service if there are any clinical or diagnostic changes. ? Most Recent Vital Signs Last Vital Signs Temp 96.6 F L 11/03/24 12:00 Pulse 68 11/03/24 12:00 Resp 20 11/03/24 12:00 BP 120/65 11/03/24 12:00 Pulse Ox 99 11/03/24 12:00 O2 Del Method Room Air 11/03/24 12:00 Laboratory-Coagulation Panel PT 11.9 Seconds (9.0-12.2) 11/03/24 04:54 INR 1.1 (0.9-1.3) 11/03/24 04:54 APTT 28.5 Seconds (22.0-36.0) 11/03/24 04:54
--- NOTE | 2024-11-03 15:51 | ESPR_ITS ---
<Statement entered by Jarrett Farias MD - 11/03/24 19:41> Patient was examined and case was reviewed with team including attending physician. Note reviewed, I agree with most of its contents and agree with the patient's care. Patient seen and evaluated at the bedside. Patient continues endorse headaches and neck stiffness, photophobia. Given her ongoing symptoms we will pursue lumbar puncture and will have analysis of CSF fluid done. Will continue with empiric treatment with Rocephin and acyclovir and vancomycin for suspected meningitis. Additionally patient is also pending EEG for her presumed medication induced seizure. Case discussed with my attending Dr. Vitor Farias MD PGY-2 Documentation for date of: 11/03/24 Subjective Subjective Interval history: NAEO. Patient evaluated bedside. Continues to note headache, neck stiffness, nausea, photophobia. Patient began to feel ill after taking her first dose of bromocriptine prescribed for excessive breastmilk production x1 day. She began vomiting but denies hematemesis. Had seizure, patient does not remember episode but was told that she fell on to her left side. Unknown if head strike occurred. CT head negative. Denies any symptoms. Denies any sick contacts at home, has 2 children. Exam Vital Signs Temp Pulse Resp BP Pulse Ox O2 Del Method 96.6 F L 68 20 120/65 99 Room Air 11/03/24 12:00 11/03/24 12:11/03/24 12:00 11/03/24 12:00 11/03/24 12:11/03/24 12:00 Narrative Exam General: Appears uncomfortable, photosensitivity Oriented x 3, Skin: Good turgor, no rash, unusual bruising or prominent lesions Head: Normocephalic, atraumatic, no visible or palpable masses, depressions, or scaring. Eyes: Visual acuity intact, conjunctiva clear, sclera non-icteric, EOM intact, PERRL, no exudates or hemorrhages Mouth: Mucous membranes moist, no mucosal lesions. Pharynx: Mucosa non-inflamed, no tonsillar hypertrophy or exudate Neck: Neck pain, stiffness. Neg Kernig, + Brudzinski Heart: No cardiomegaly or thrills; regular rate and rhythm, no murmur or gallop Lungs: Clear to auscultation and percussion. No rales, wheeze, or rhonchi Abdomen: Bowel sounds normal, no tenderness, organomegaly, masses, or hernia Back: Spine normal without deformity or tenderness, no CVA tenderness Extremities: No amputations or deformities, cyanosis, edema or varicosities, peripheral pulses intact Objective Labs 11/04/24 04:32 11/04/24 04:32 Labs: Laboratory Results - last 24 hr 11/02/24 11/02/24 11/03/24 16:50 22:48 00:17 WBC RBC Hgb Hct MCV MCH MCHC RDW Std Deviation Plt Count Neut % (Auto) Lymph % (Auto) [place] % (Auto) Eos % (Auto) Baso % (Auto) Neut # (Auto) Lymph # (Auto) [place] # (Auto) Eos # (Auto) Baso # (Auto) Immature Gran # (Auto) Absolute Nucleated RBC Immature Gran % Nucleated RBC % PT INR APTT Sodium Potassium 3.6 D Chloride Carbon Dioxide Anion Gap BUN Creatinine Estim Creat Clear Calc eGFR BUN/Creatinine Ratio Glucose Estimated Ave Glu mg/dL Hemoglobin A1c Calculated Osmolality Lactic Acid 0.9 Calcium Corrected Calcium Phosphorus Magnesium Total Bilirubin AST ALT Alkaline Phosphatase Total Protein Albumin Globulin Albumin/Globulin Ratio Triglycerides Cholesterol LDL Cholesterol, Calc HDL Cholesterol Cholesterol/HDL Ratio TSH Free T4 CSF Color CSF WBC CSF RBC CSF Cell Count Tube # CSF Mononuclear WBCs CSF Glucose CSF Total Protein Influenza A (Rapid) Negative Influenza B (Rapid) Negative 11/03/24 11/03/24 04:54 14:15 WBC 4.7 D RBC 4.01 Hgb 11.6 L D Hct 35.2 L MCV 88 MCH 28.9 MCHC 33.0 RDW Std Deviation 42.0 Plt Count 181 D Neut % (Auto) 45 Lymph % (Auto) 37 [place] % (Auto) 12 Eos % (Auto) 5 Baso % (Auto) 0 Neut # (Auto) 2.1 Lymph # (Auto) 1.7 [place] # (Auto) 0.6 Eos # (Auto) 0.2 Baso # (Auto) 0.0 Immature Gran # (Auto) 0.01 H Absolute Nucleated RBC 0.00 Immature Gran % 0 Nucleated RBC % 0 PT 11.9 INR 1.1 APTT 28.5 Sodium 143 Potassium 3.7 Chloride 110 H Carbon Dioxide 22.7 Anion Gap 10 BUN 10 Creatinine 0.8 Estim Creat Clear Calc 117.9 eGFR > 60 BUN/Creatinine Ratio [address] Glu mg/dL 111 Hemoglobin A1c 5.5 Calculated Osmolality 282 Lactic Acid Calcium 8.5 Corrected Calcium 8.7 Phosphorus 3.6 Magnesium 1.6 Total Bilirubin 0.6 AST 15 ALT 8 L Alkaline Phosphatase 60 D Total Protein 5.8 Albumin 3.8 D Globulin 2.0 L Albumin/Globulin Ratio 1.9 Triglycerides 41 Cholesterol 101 L LDL Cholesterol, Calc 51 HDL Cholesterol 42 Cholesterol/HDL Ratio 2.4 L TSH 0.45 L Free T4 1.06 CSF Color Colorless CSF WBC 2 CSF RBC 0 CSF Cell Count Tube # Tube # 4 CSF Mononuclear WBCs 100.0 CSF Glucose 58 CSF Total Protein 31 Influenza A (Rapid) Influenza B (Rapid) Quality Measures Quality Measures VTE prophylaxis Assessment & Plan Assessment Current Active Medications: Generic Name Dose Route Start Last Admin Trade Name Freq PRN Reason Stop Dose Admin Acetaminophen 650 mg 11/02/24 17:30 11/03/24 05:57 Acetaminophen 325 Mg Tablet PO 12/02/24 17:29 650 mg Q6H PRN Administration PAIN SCALE 1-3 (mild Hydrocodone Bitart/Acetaminophen 1 tab 11/02/24 17:34 11/03/24 08:53 Hydrocodone/Apap 5/325 Tablet PO 11/07/24 17:33 1 tab Q4HR PRN Administration PAIN SCALE 4-6 (Moderate Ceftriaxone Sodium 2 gm/ 50 mls @ 100 mls/hr 11/02/24 21:00 11/03/24 08:53 Sodium Chloride IV 11/09/24 20:59 100 mls/hr BID ALDEN Administration Vancomycin HCl/Dextrose 250 mls @ 120 mls/hr 11/03/24 10:00 11/03/24 12:02 Vancomycin/D5w 1,250 Mg Ivpb IV 11/10/24 09:59 120 mls/hr Q12H ALDEN Administration Protocol Acyclovir Sodium 700 mg/ 114 mls @ 114 mls/hr 11/03/24 14:00 11/03/24 15:36 Sodium Chloride IV 11/10/24 13:59 114 mls/hr Q8HR ALDEN Administration Protocol Midazolam HCl 2 mg 11/02/24 17:35 Midazolam Inj 1 Mg/Ml Vial 2 Ml IVP 11/07/24 17:34 Q15MIN PRN Seizure Activity Morphine Sulfate 2 mg 11/02/24 17:30 Morphine Sulf Inj 10 Mg/Ml Vial IVP 11/07/24 17:29 Q2H PRN PAIN SCALE 7-10 (Severe Protocol Ondansetron HCl 4 mg 11/02/24 17:30 11/02/24 19:48 Ondansetron Inj 2 Mg/Ml Inj 2 Ml IVP 12/02/24 17:29 4 mg Q6H PRN Administration NAUSEA OR VOMITING Protocol Pharmacy Consult 1 each 11/02/24 16:45 Vancomycin Pharmacy To Dose 1 Each Each IV 12/02/24 16:44 QDAY PRN CONSULT Plan Mrs. Nathan is a 24F with remote history of PNES, not on ASD, recently started taking bromocriptine, admitted for seizure workup and meningitis r/o. P ending CSF analysis, EEG. #Medication-induced seizure Pt reports headache, nausea, vomiting, neck pain/stiffness started shortly right after she took her first bromocriptine 2.5mg pill prescribed by her PCP Hx of seizure 5 years ago 11/02/24: Head CT unremarkable. Initial lactate of 6, rpt lactate of 0.9 4H after. Dx: - Pending EEG - Discontinue bromocriptine 2.5mg PO - Seizure precaution - Swallow evaluation as needed - Neuro check Q4H - Aspiration precaution - Neuro consult, appreciate recs #Bacterial vs viral meningitis Pt denied any recent sick contact, fever, cough. However, does endorse neck pain/stiffness and photosensitivity, n/v. 11/02/24: C-spine CT, CT head unremarkable. 11/03 MRI 2/o: Negative for acute hemorrhage, infarct, or demyelinating disease. Dx: - Pending CSF analysis - BCx pending - Empiric treatment started (Acyclovir, Rocenphin, Vanco) - Neuro consult, appreciate recs #Right sided arm and leg pain, likely musculoskeletal secondary to seizure Pt reports right sided arm and leg pain, fell during seizure 11/02/24: CXR, shoulder XR, wrist XR, elbow XR all negative. Tx: - Pain management as needed #Normocytic normochromic anemia No signs of acute bleeding Plan: - CTM with daily CBC Dispo: Pending EEG, CSF analysis DVT prophylaxis: SCDs GI prophylaxis: Protonix 20 Diet: normal Lines: Peripheral IV Code status: Full code Case discussed with my senior residents Dr. Dr. Carrington Thacker Case discussed with my attending Dr. Vitor Blankenship MD PGY1 Attending Provider Attestation/Addendum I have examined the patient, reviewed labs and imaging findings, discussed the case with the resident(s), and reviewed entered orders. I agree with the plan of care as outlined in this note, with these additional summaries/recommendations: After examination of the patient and review of the clinical data, I feel that this patient needs admission to the hospital for further treatment and evaluation. Patient is a 24-year-old female with a medical history of ? childhood seizures?, anxiety, and remote history of substance abuse presents to [facility] emergency department on 11/02/2024 with chief complaint of seizure-like activity. Patient seen at bedside. No acute overnight events. Patient continues to endorse moderate to severe neck stiffness and right-sided weakness. She endorses improvement in photophobia. Patient presented with seizure-like activity. She has a history of seizures and childhood/teenage years induced by anxiety and did not require antiepileptics. On admission lactic acid was noted to be significantly elevated supporting the diagnosis of seizures. She reports she has not had a seizure in 5 years. Etiology likely secondary to initiation of bromocriptine which we have discontinued. Other possibility is meningitis as etiology. Suspicion is low for bacterial meningitis although patient's symptoms are very concerning. Will continue empiric antibiotics and patient will go for lumbar puncture today. No growth to date on blood cultures. Patient is also pending MRI brain and EEG. Continue pain management for right sided weakness. Imaging studies on admission did not reveal any acute fractures. Patient updated on the plan and in agreement. All questions answered to satisfaction. Please see residents note for additional details and management. Dr. Vitor MD
[2024-11-03 16:08] LABS: CSF Gram Stain Alert Gram Stain Completed; CSF Polynuclear WBC 0 %; CSF, Appearance Clear (Clear)
--- NOTE | 2024-11-03 16:10 | PC.SS ---
SS follow up note; Lumbar puncture today, Patient will discharge home within 2-3 days.
[2024-11-04] VITALS (8 sets, daily range): BP systolic 93–121; BP diastolic 47–91; PULSE 55–101; RESP 13–19; TEMP 35.9–36.4; O2SAT 96–100; BMI 28.6
--- NOTE | 2024-11-04 00:08 | PC.NURSE ---
DR. RODGERS AT BEDSIDE. MD NOTIFIED REGARDING CONTINUOUS HEADACHE, POST NORCO ADMINISTRATION. PT STATING HEADACHE IS NOW TO FRONTAL AREA CAUSING TEETH ACHES WORSE UPON SITTING UP AND BETTER WHEN LAYING FLAT. MD TO PLACE NEW ORDERS FOR PAIN.
[2024-11-04] MEDS: ACYCLOVIR INJ 700 MG in SODIUM CHLORIDE 0.9% 100 ML 114 MG IV (05:16)
[2024-11-04] MEDS: ACETAMINOPHEN 325 MG TABLET 650 MG PO ×2 (05:17→16:35)
[2024-11-04 06:00] LABS: Basophils # (Auto) 0.0 Thou/mm3 (0.0-0.2); Basophils % (Auto) 1 % (0-2.5); Eosinophils # (Auto) 0.4 Thou/mm3 (0.0-0.5); Eosinophils % (Auto) 7 % (0-10); Hematocrit 37.6 % (36.0-46.0); Hemoglobin 12.7 g/dL (12.0-16.0); Immature Granulocytes Auto 0.01 Thou/mm3 (0.00-0.00); Lymphocytes # (Auto) 1.9 Thou/mm3 (1.0-4.8); Lymphocytes % (Auto) 34 % (10-50); Mean Corpuscular HGB Conc 33.8 g/dl (31.0-37.0); Mean Corpuscular Hemoglobin 29.5 pg (25.0-35.0); Mean Corpuscular Volume 87 fL (80-100); Monocytes # (Auto) 0.6 Thou/mm3 (0.0-0.8); Monocytes % (Auto) 11 % (0-12); Neutrophils # (Auto) 2.6 Thou/mm3 (1.8-7.7); Neutrophils % (Auto) 47 % (37-80); Nucleated Red Blood Cell # 0.00 Thou/mm3 (0.00-0.00); Nucleated Red Blood Cell % 0 /100 WBC (0); Platelet Count 173 Thou/mm3 (140-440); RDW Standard Deviation 41.1 fL (36.4-46.3); Red Blood Count 4.31 Miln/mm3 (4.00-5.20); White Blood Count 5.6 Thou/mm3 (3.6-11.0)
[2024-11-04 06:28] LABS: Alanine Aminotransferase 7 U/L (10-49); Albumin, Serum 3.9 gm/dL (3.5-5.0); Albumin/Globulin Ratio 1.8 (1.2-2.2); Alkaline Phosphatase 65 U/L (46-116); Anion Gap 9 (7-16); Aspartate Amino Transferase 14 U/L (0-34); BUN/Creatinine Ratio 7 Ratio (12-20); Bilirubin,Total 0.4 mg/dL (0.3-1.2); Blood Urea Nitrogen 6 mg/dL (9-23); Calcium 8.9 mg/dL (8.3-10.6); Calcium (Corrected) 9.0 mg/dL (8.5-10.1); Carbon Dioxide 23.9 mMol/L (20.0-31.0); Chloride 109 mMol/L (98-107); Creatinine (Component) 0.9 mg/dL (0.6-1.3); Estimated Creatinine Clearance 102.7 mL/min (>60); Globulin 2.2 gm/dL (2.3-3.5); Glucose 93 mg/dL (74-106); Magnesium 1.6 mg/dL (1.6-2.6); Osmolality,Calculated 280 (275-295); Phosphorous 3.9 mg/dL (2.4-5.1); Potassium 3.8 mMol/L (3.4-5.1); Sodium 142 mMol/L (136-145); Total Protein 6.1 gm/dL (5.7-8.2); eGFR > 60 See Note
[2024-11-04] MEDS: HYDROcodone/APAP 5/325 TABLET 1 TAB PO ×3 (07:25→17:39)
[2024-11-04] MEDS: cefTRIAXone 2 GM in SODIUM CHLORIDE 0.9% (Popper) 50 ML IV (08:53)
--- NOTE | 2024-11-04 09:52 | ESPR_ITS ---
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 Ddx includes provoked seizure by medication adverse effect vs possible meningitis, workup pending Interval history: 11/03/2024: CSF WBC 2, RBC 0, glucose 58, protein 31, viral panel pending No events overnight 11/04: has headache since LP. Impression: History of Psychogenic Nonepileptic Seizures Headache and seizures Recommendations: (Primary Team to order Controlled Medications) Unless specifically noted I Agree with Impression and Plan from previous Neurology note/consult. 1- Brain MRI No Acute Intracranial Abnormality reported. 2- Routine EEG report Pending 3- Seizure precautions per state law (inpatient and outpatient) as reference please refer to https://www.epilepsy.com/lifestyle/noikast-vus-qcnqmhzdwsnrgq/laws/ 4- Antiepileptic drug: Can hold off on Antiepileptic Drug till workup is completed (unless patient has another clinical event consistent with seizure) 5- Give Lorazepam 2 mg IV PRN for seizures > 3 min or > 3 episodes in one hour. Don't give more than 6-8 mg total in 24 hour period). If possible Please avoid aminophylline, theophylline, isoniazid, lindane, metronidazole, nalidixic acid, meropenem/imipenem, Quinolone antibiotics, cefepime, TCAs, bupropion, cyclosporine, chlorambucil, tramadol, clozapine, or other drugs which can lower seizure threshold. 6- follow-up on CSF viral panel 7- for post LP headache initial treatment is rest, hydration and analgesics (acetaminophen, NSAIDs and at times opioids) and if not effective blood patch by radiology. [facility] Neurologist will follow up with results. Please contact [facility] Navigator to reach me if further questions/concerns arise. Examination: Examination done through interactive audio and video telecommunications with the assist of bedside nursing (when available) awake, alert, Oriented x3 speech no aphasia Extraocular movements intact face symmetric arms no drift (10s) coordination intact in finger to nose Patient / Family was informed the Neurology Consult would occur via TeleHealth consult by way of interactive audio and video telecommunications and consented to receiving care in this manner. Patient is being evaluated for possible acute neurologic impairment and high probability of imminent or life - threatening deterioration. I spent total of 15 minutes providing care to this patient, including time for face to face visit via telemedicine, review of medical records, imaging studies and discussion of findings with providers, the patient and / or family. Dr Damir Stearns [facility] For Inpatient follow-up with [facility] physician please call [facility] . This is not an outpatient service. Post hospital discharge, please contact hospital directly. Please do not communicate with [facility] physicians via secure chat. If you have any questions, Please contact [facility]. Please call or reconsult our service if there are any clinical or diagnostic changes. Most Recent Vital Signs Last Vital Signs Temp 97.2 F 11/04/24 08:00 Pulse 101 H 11/04/24 08:00 Resp 13 11/04/24 08:00 BP 93/51 L 11/04/24 08:00 Pulse Ox 97 11/04/24 08:00 O2 Del Method Room Air 11/04/24 08:00 Laboratory-Coagulation Panel PT 11.9 Seconds (9.0-12.2) 11/03/24 04:54 INR 1.1 (0.9-1.3) 11/03/24 04:54 APTT 28.5 Seconds (22.0-36.0) 11/03/24 04:54
[2024-11-04 10:02] LABS: Vancomycin,Trough 8.2 mcg/mL (5.0-10.0)
--- NOTE | 2024-11-04 10:10 | ESPR_ITS ---
<Statement entered by Jarrett Farias MD - 11/04/24 17:29> Patient was examined and case was reviewed with team including attending physician. Note reviewed, I agree with most of its contents and agree with the patient's care. Patient seen today at the bedside found awake, alert, orientedx3. No overnight events reported. Vitals and labs reviewed. Patient states improvement in neck stiffness as well as photophobia however does continue to have headaches although mild. CSF studies for now showed no evidence of meningitis at this time we will discontinue antibiotics as well as acyclovir. Will continue to wait for the rest of the CSF studies. Case discussed with my attending Dr. Vitor Farias MD PGY-2 Documentation for date of: 11/04/24 Subjective Subjective Interval history: NAEO Patient evaluated at bedside. Reports that her symptoms have somewhat improved. Decreased neck stiffness, continues to have headache. No N/V. No hx migraines, not on oral control. Exam Vital Signs Temp Pulse Resp BP Pulse Ox O2 Del Method 97.2 F 101 H 13 93/51 L 97 Room Air 11/04/24 08:00 11/04/24 08:00 11/04/24 08:00 11/04/24 08:00 11/04/24 08:00 11/04/24 08:00 Narrative Exam General: No acute distress, well nourished Eye: PERRL, EOMI, normal conjunctiva, no scleral icterus HENT: Normocephalic, atraumatic, normal hearing, moist oral mucosa Neck: Neck stiffness. + Brudzinski, negative Kernig. Able to passively move neck vertically with less pain than previous exams Breast: Left breast larger than right, no induration, erythema, warmth, hardness, or tenderness to palpation Lungs: Clear to auscultation bilaterally, non-labored respirations, symmetric chest rise, no use of accessory muscles Heart: Normal S1 and S2, no S3 or S4 appreciated. Normal rate and regular rhythm, no murmurs, rubs gallops, or edema. Peripheral pulses intact bilaterally, capillary refill brisk distally Abdomen: Soft, non-tender, non-distended, normal bowel sounds. No guarding or rebound tenderness. Musculoskeletal: Normal range of motion and strength, no tenderness or swelling Skin: Skin is warm, dry, no rashes or lesions. Neurologic: Alert, awake and oriented x3. CN II-XII grossly intact. No focal neuro deficits. No signs of meningeal irritation noted. Psychiatric: Cooperative, appropriate mood and affect Objective Labs 11/05/24 05:10 11/05/24 05:10 Labs: Laboratory Results - last 24 hr 11/03/24 11/04/24 11/04/24 14:15 04:32 09:13 WBC 5.6 RBC 4.31 Hgb 12.7 Hct 37.6 MCV 87 MCH 29.5 MCHC 33.8 RDW Std Deviation 41.1 Plt Count 173 Neut % (Auto) 47 Lymph % (Auto) 34 [place] % (Auto) 11 Eos % (Auto) 7 Baso % (Auto) 1 Neut # (Auto) 2.6 Lymph # (Auto) 1.9 [place] # (Auto) 0.6 Eos # (Auto) 0.4 Baso # (Auto) 0.0 Immature Gran # (Auto) 0.01 H Absolute Nucleated RBC 0.00 Immature Gran % 0 Nucleated RBC % 0 Sodium 142 Potassium 3.8 Chloride 109 H Carbon Dioxide 23.9 Anion Gap 9 BUN 6 L Creatinine 0.9 Estim Creat Clear Calc 102.7 eGFR > 60 BUN/Creatinine Ratio 7 L Glucose 93 Calculated Osmolality 280 Calcium 8.9 Corrected Calcium 9.0 Phosphorus 3.9 Magnesium 1.6 Total Bilirubin 0.4 AST 14 ALT 7 L Alkaline Phosphatase 65 Total Protein 6.1 Albumin 3.9 Globulin 2.2 L Albumin/Globulin Ratio 1.8 CSF Appearance Clear CSF Color Colorless CSF WBC 2 CSF RBC 0 CSF Cell Count Tube # Tube # 4 CSF Mononuclear WBCs 100.0 CSF Polynuclear WBCs 0 CSF Glucose 58 CSF Total Protein 31 Vancomycin Trough 8.2 Quality Measures Quality Measures VTE prophylaxis Assessment & Plan Assessment Current Active Medications: Generic Name Dose Route Start Last Admin Trade Name Freq PRN Reason Stop Dose Admin Acetaminophen 650 mg 11/02/24 17:30 11/04/24 05:17 Acetaminophen 325 Mg Tablet PO 12/02/24 17:29 650 mg Q6H PRN Administration PAIN SCALE 1-3 (mild Hydrocodone Bitart/Acetaminophen 1 tab 11/02/24 17:34 11/04/24 07:25 Hydrocodone/Apap 5/325 Tablet PO 11/07/24 17:33 1 tab Q4HR PRN Administration PAIN SCALE 4-6 (Moderate Midazolam HCl 2 mg 11/02/24 17:35 Midazolam Inj 1 Mg/Ml Vial 2 Ml IVP 11/07/24 17:34 Q15MIN PRN Seizure Activity Morphine Sulfate 2 mg 11/02/24 17:30 Morphine Sulf Inj 10 Mg/Ml Vial IVP 11/07/24 17:29 Q2H PRN PAIN SCALE 7-10 (Severe Protocol Ondansetron HCl 4 mg 11/02/24 17:30 11/02/24 19:48 Ondansetron Inj 2 Mg/Ml Inj 2 Ml IVP 12/02/24 17:29 4 mg Q6H PRN Administration NAUSEA OR VOMITING Protocol Plan Mrs. Nathan is a 24F with remote history of PNES, not on ASD, recently started taking bromocriptine for excess breast milk production, admitted for seizure workup and meningitis r/o. Pending EEG read. #C/F Seizure Pt reports headache, nausea, vomiting, photophobia, neck pain/stiffness, seizure-like activity shortly right after she took her first bromocriptine 2.5mg pill prescribed by her PCP. Patient received epi pen after seizure-like activity. 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 Elevated lactic acid DDX: seizure, epi administration Dx: - Pending EEG read - Discontinue bromocriptine 2.5mg PO - Seizure precaution - Swallow evaluation as needed - Neuro check Q4H - Aspiration precaution - Neuro consult, appreciate recs - F/U outpatient neurology #Bacterial vs viral meningitis - low suspicion Pt reports headache, nausea, vomiting, neck pain/stiffness, seizure-like activity shortly right after she took her first bromocriptine 2.5mg pill prescribed by her PCP. Patient received epi pen after seizure-like activity. Sx improvement 11/04, afebrile, no leukocytosis 11/02/24: C-spine CT, CT head unremarkable. 11/03 MRI 2/o: Negative for acute hemorrhage, infarct, or demyelinating disease. CSF: clear, WBC 2, RBC 0, monocytes 100%, glucose 58, protein 31. CSF stain showed no organisms. DDX: migraine, bromocriptine side effect, meningitis, seizure-related injury Low suspicion for meningitis given afebrile, no leukocytosis, CSF cell count and differential unremarkable, CSF stain unremarkable. Blood cx NGTD on prelim. Plan: - Pending CSF analysis - BCx and CSF cx pending, pending viral CSF studies - Due to low suspicion of bacterial and viral meningitis, d/c Acyclovir, Rocephin, Vancomycin - Neuro consult, appreciate recs #Right sided arm and leg pain, likely musculoskeletal secondary to seizure Pt reports right sided arm and leg pain, fell during seizure. Continues to have right sided generalized weakness/myalgia. 08/04 strength upper and lower extremities b/l. 11/02/24: CXR, shoulder XR, wrist XR, elbow XR all negative. Tx: - Pain management as needed ([place] 5/325, Tylenol 650 PRN) #Normocytic normochromic anemia No signs of acute bleeding Plan: - CTM with daily CBC Dispo: Pending EEG read DVT prophylaxis: SCDs GI prophylaxis: Protonix 20 Diet: normal Lines: Peripheral IV Code status: Full code Case discussed with my senior residents Dr. Carrington Farias (senior resident) and Dr. Adler (attending) Cassie Blankenship MD PGY1 Attending Provider Attestation/Addendum I have examined the patient, reviewed labs and imaging findings, discussed the case with the resident(s), and reviewed entered orders. I agree with the plan of care as outlined in this note, with these additional summaries/recommendations: Patient is a 24-year-old female with a medical history of ? childhood seizures?, anxiety, and remote history of substance abuse presents to [facility] emergency department on 11/02/2024 with chief complaint of seizure-like activity. Patient seen at bedside. No acute overnight events. Today patient endorses improvement in neck stiffness and right-sided weakness. Range of motion is significantly improved in her neck but not back to baseline. Patient is status post lumbar puncture. CSF analysis relatively within normal limits and we will discontinue antibiotics. CSF Gram stain shows no bacteria or WBCs. Bacterial meningitis ruled out. Patient also had seizure-like activity on admission. She has a history of psychogenic nonepileptic seizures dating back to her teenage years. She reports she has not had a seizure in 5 years. Etiology likely related to the initiation of bromocriptine which we have discontinued and counseled patient not to take anymore. MRI brain relatively within normal limits. EEG taken and pending read, we will follow-up with teleneurology. Continue seizure precautions and follow-up neuro recs. Repeat hematology and chemistry panel in AM. Patient and family updated on the plan and in agreement. All questions answered satisfaction. Please see residents note for additional details management. Dr. Vitor MD
--- NOTE | 2024-11-04 11:55 | PC.LAC ---
Patient requested a hand pump in order to get some relief from engorgement. She did not want the electric pump as she was in the process of weening her daughter. Explained the kit to mom, who stated that she was familiar with the kit.
[2024-11-04] MEDS: MORPHINE SULF INJ 10 MG/ML VIAL 2 MG IVP ×3 (14:38→23:07)
--- NOTE | 2024-11-04 18:16 | PD.TNEEG ---
EEG Report EEG Interpretation Date/time of EE11/04/2024 [facility] Routine EEG Report Video Performed: Performed Demographics:Patient Name:???Debi Nathan Date of :???2000 Identification Number:??? Study Times: Study Start Time:???11/04/2024 11:02:00 Study End Time:???11/04/2024 11:28:00 Duration:???26?minutes Indication(s):Seizures Medication: Ativan PRN Technical Summary: This EEG was performed utilizing standard International 10-20 System of electrode placement. One channel electrocardiogram was monitored. Data were obtained and interpreted utilizing referential montage recording, with reformatting to longitudinal, transverse bipolar, and referential montages as necessary for interpretation. State(s): ?Awake ?Drowsy ?Asleep EKG:?Single Lead EKG was Irregular Activation Procedures: Hyperventilation:?Performed : Photic Stimulation:?Performed : No Photic Driving EEG Description: During wakefulness, the background showed a continuous 10Hz posterior dominant alpha rhythm which was fairly modulated, symmetrical and reactive to eye opening. ?Photic stimulation or hyperventilation did not provoke any abnormal response. ?Drowsiness demonstrated a background attenuation. ?Sleep stage II showed a symmetrical appearance of sleep spindles and vertex waves. ?There was no clinical event or button-pushed event noted. ?Throughout the record, there was no epileptiform abnormality or lateralizing sign observed. ?Intermittent electrode and movement artifacts were noted. ? ? Impression: This is a normal awake, drowsy and sleep EEG. No epileptiform abnormality or lateralizing sign is observed. ?Note that an absence of epileptiform abnormality does not exclude a diagnosis of epilepsy. Dr Janice Palomares It is not live continuous monitoring by [facility]. [facility] For Inpatient follow-up with [facility] physician please call [facility] at . As we are not an outpatient service for any post hospital discharge needs please contact the hospital for assistance. If you have any questions for the [facility] physicians or need to reconsult for clinical or diagnostic changes please contact us via [facility] at . Signature :?Janice Palomares
[2024-11-04] MEDS: ONDANSETRON INJ 2 MG/ML INJ 2 ML 4 MG IVP (19:21)
[2024-11-04] MEDS: HYDROmorphone INJ 2 MG/ML VIAL 1 MG IVP (20:52)
--- NOTE | 2024-11-04 20:53 | XR_ITS ---
Examination: CT brain head without contrast. 2-D sagittal coronal reconstructions Date and time of exam:November 04, 2024 at 10:46 PM Indications headache neck pain today CTDI: vol (mGy):52.9 DLP: (mGycm):982 Technique: Multiple CT axial sections of the brain have been obtained, 5 mm slice thickness. Contrast has not been administered. 2-D sagittal, coronal reconstructions have been obtained Low dose protocols were performed. One or more of the following dose reduction techniques were used; automated exposure control, adjustment of the mA and/or KV according to patient size, use of iterative reconstruction technique. Findings: No significant ventricular enlargement. Intra-axial or extra-axial hemorrhage density is not seen. No mass effect or midline shift Basal cisterns are not remarkable. Fourth ventricle is midline. Cranial vault intact. Impression: Negative for acute hemorrhage, mass effect or midline shift Advise clinical correlation and follow up accordingly
[2024-11-04 21:24] LABS: Basophils # (Auto) 0.0 Thou/mm3 (0.0-0.2); Basophils % (Auto) 0 % (0-2.5); Eosinophils # (Auto) 0.4 Thou/mm3 (0.0-0.5); Eosinophils % (Auto) 4 % (0-10); Hematocrit 40.2 % (36.0-46.0); Hemoglobin 13.5 g/dL (12.0-16.0); Immature Granulocytes Auto 0.03 Thou/mm3 (0.00-0.00); Lymphocytes # (Auto) 2.2 Thou/mm3 (1.0-4.8); Lymphocytes % (Auto) 22 % (10-50); Mean Corpuscular HGB Conc 33.6 g/dl (31.0-37.0); Mean Corpuscular Hemoglobin 28.8 pg (25.0-35.0); Mean Corpuscular Volume 86 fL (80-100); Monocytes # (Auto) 0.9 Thou/mm3 (0.0-0.8); Monocytes % (Auto) 9 % (0-12); Neutrophils # (Auto) 6.5 Thou/mm3 (1.8-7.7); Neutrophils % (Auto) 65 % (37-80); Nucleated Red Blood Cell # 0.00 Thou/mm3 (0.00-0.00); Nucleated Red Blood Cell % 0 /100 WBC (0); Platelet Count 192 Thou/mm3 (140-440); RDW Standard Deviation 39.5 fL (36.4-46.3); Red Blood Count 4.68 Miln/mm3 (4.00-5.20); White Blood Count 10.1 Thou/mm3 (3.6-11.0)
[2024-11-04 21:34] LABS: Sed Rate (ESR) 6 mm/hr (0-20)
[2024-11-04 22:37] LABS: C-Reactive Protein < 0.5 mg/dL (0.0-0.9)
--- NOTE | 2024-11-04 23:12 | EVENTNT_ITS ---
Documentation for date of: 11/04/24 Event Note Event Note: Rapid response was called at 20:40 for a patient reporting a severe headache, describing it as throbbing. Patient stated the headache began after undergoing a lumbar puncture on 11/02. On evaluation, vitals were stable aside from mild tachycardia; temperature was 97.0?F initially and 96.8?F on repeat. Physical exam was notable for nuchal rigidity, but Brudzinski sign was negative. Laboratory and diagnostic workup showed: * WBC within normal limits * CRP negative * ESR negative * CSF negative for meningitis * CT head without contrast completed, pending read. Patient was given Dilaudid, after which the headache significantly improved, and the patient was able to rest comfortably. No further acute interventions were required. Plan: Patient stabilized with resolution of symptoms. Continued monitoring by primary team. Patient likely experiencing post procedural headache, Anesthesiology to do a blood patch. If not, will give patient iv Caffeine. ----- Plan discussed with attending physician Dr. Ethan Goyal MD PGY-1 Internal Medicine
[2024-11-05] VITALS (12 sets, daily range): BP systolic 95–129; BP diastolic 62–88; PULSE 50–89; RESP 14–22; TEMP 35.9–36.2; O2SAT 98–100
[2024-11-05] MEDS: MORPHINE SULF INJ 10 MG/ML VIAL 2 MG IVP ×5 (03:15→12:16)
[2024-11-05] MEDS: ONDANSETRON INJ 2 MG/ML INJ 2 ML 4 MG IVP ×2 (03:16→10:10)
[2024-11-05 05:38] LABS: Basophils # (Auto) 0.0 Thou/mm3 (0.0-0.2); Basophils % (Auto) 0 % (0-2.5); Eosinophils # (Auto) 0.3 Thou/mm3 (0.0-0.5); Eosinophils % (Auto) 6 % (0-10); Hematocrit 39.1 % (36.0-46.0); Hemoglobin 13.3 g/dL (12.0-16.0); Immature Granulocytes Auto 0.01 Thou/mm3 (0.00-0.00); Lymphocytes # (Auto) 1.5 Thou/mm3 (1.0-4.8); Lymphocytes % (Auto) 30 % (10-50); Mean Corpuscular HGB Conc 34.0 g/dl (31.0-37.0); Mean Corpuscular Hemoglobin 29.1 pg (25.0-35.0); Mean Corpuscular Volume 86 fL (80-100); Monocytes # (Auto) 0.5 Thou/mm3 (0.0-0.8); Monocytes % (Auto) 11 % (0-12); Neutrophils # (Auto) 2.6 Thou/mm3 (1.8-7.7); Neutrophils % (Auto) 53 % (37-80); Nucleated Red Blood Cell # 0.00 Thou/mm3 (0.00-0.00); Nucleated Red Blood Cell % 0 /100 WBC (0); Platelet Count 175 Thou/mm3 (140-440); RDW Standard Deviation 39.8 fL (36.4-46.3); Red Blood Count 4.57 Miln/mm3 (4.00-5.20); White Blood Count 4.9 Thou/mm3 (3.6-11.0)
[2024-11-05 06:34] LABS: Alanine Aminotransferase 8 U/L (10-49); Albumin, Serum 4.4 gm/dL (3.5-5.0); Albumin/Globulin Ratio 1.8 (1.2-2.2); Alkaline Phosphatase 67 U/L (46-116); Anion Gap 10 (7-16); Aspartate Amino Transferase 13 U/L (0-34); BUN/Creatinine Ratio 9 Ratio (12-20); Bilirubin,Total 0.6 mg/dL (0.3-1.2); Blood Urea Nitrogen 8 mg/dL (9-23); Calcium 9.4 mg/dL (8.3-10.6); Calcium (Corrected) 9.4 mg/dL (8.5-10.1); Carbon Dioxide 26.5 mMol/L (20.0-31.0); Chloride 105 mMol/L (98-107); Creatinine (Component) 0.9 mg/dL (0.6-1.3); Estimated Creatinine Clearance 102.7 mL/min (>60); Globulin 2.4 gm/dL (2.3-3.5); Glucose 96 mg/dL (74-106); Magnesium 2.1 mg/dL (1.6-2.6); Osmolality,Calculated 279 (275-295); Phosphorous 4.2 mg/dL (2.4-5.1); Potassium 3.8 mMol/L (3.4-5.1); Sodium 141 mMol/L (136-145); Total Protein 6.8 gm/dL (5.7-8.2); eGFR > 60 See Note
[2024-11-05] MEDS: CAFFEINE CITRATED LIQD 20 MG/ML 300 MG PO (09:25)
[2024-11-05] MEDS: RINGERS LACTATED 1000 ML 1,000 ML 125 ML IV (10:01)
--- NOTE | 2024-11-05 10:10 | ESPR_ITS ---
<Statement entered by Jarrett Farias MD - 11/05/24 23:41> Patient was examined and case was reviewed with team including attending physician. Note reviewed, I agree with most of its contents and agree with the patient's care as documented by Dr. Blankenship Patient seen today at the bedside found awake, alert, orientedx3. Patient currently endorsing headache s/p LP, spoke to IR for blood patch. pending EEG readdd Case discussed with my attending Dr. Vitor Farias MD PGY-2 Documentation for date of: 11/05/24 Subjective Subjective Interval history: Rapid response was called at 20:40 11/04 for severe throbbing headache. Headache began after undergoing a lumbar puncture on 11/02. VSS. Physical exam showed nuchal rigidity, but Brudzinski sign was negative. CRP and ESR WNL. CT head w/o negative for acute hemorrhage, midline shift, mass effect. Given Dilaudid, improved headache and patient was able to sleep. Patient examined at bedside. Continues to have throbbing headache and low back pain at site of LP, tender to palpation. Patient using ice packs on neck and lower back. sPO2 100% 3L. Given IV 300 mg caffeine x1, no improvement in symptoms. Plan to do epidural blood patch today. Exam Vital Signs Temp Pulse Resp BP Pulse Ox O2 Del Method O2 Flow Rate 96.6 F L 64 16 111/64 100 Nasal Cannula 3 11/05/24 08:00 11/05/24 08:00 11/05/24 08:00 11/05/24 08:00 11/05/24 08:00 11/05/24 08:00 11/05/24 08:00 Narrative Exam General: Visibly uncomfortable, using ice packs on neck and lower back Eye: PERRL, EOMI, normal conjunctiva, no scleral icterus HENT: Normocephalic, atraumatic, normal hearing, moist oral mucosa Neck: Neck stiffness. + Brudzinski, negative Kernig. Able to passively move neck vertically with less pain than previous exams Breast: Left breast larger than right, no induration, erythema, warmth, hardness, or tenderness to palpation Lungs: Clear to auscultation bilaterally, non-labored respirations, symmetric chest rise, no use of accessory muscles Heart: Normal S1 and S2, no S3 or S4 appreciated. Normal rate and regular rhythm, no murmurs, rubs gallops, or edema. Peripheral pulses intact bilaterally, capillary refill brisk distally Abdomen: Soft, non-tender, non-distended, normal bowel sounds. No guarding or rebound tenderness. Musculoskeletal: Tenderness to palpation of lower back at site of and around LP site Skin: Skin is warm, dry, no rashes or lesions. LP site dry, no drainage or active bleeding, no erythema or warmth. Neurologic: Alert, awake and oriented x3. CN II-XII grossly intact. Strength 5/5 b/l upper and lower extremities. Light touch intact and symmetric in b/l upper and lower extremities. Psychiatric: Cooperative, appropriate mood and affect Objective Labs 11/06/24 06:06 11/06/24 06:06 Labs: Laboratory Results - last 24 hr 11/04/24 11/05/24 21:04 05:10 WBC 10.1 D 4.9 D RBC 4.68 4.57 Hgb 13.5 13.3 Hct 40.2 39.1 MCV 86 86 MCH 28.8 29.1 MCHC 33.6 34.0 RDW Std Deviation 39.5 39.8 Plt Count 192 175 Neut % (Auto) 65 53 Lymph % (Auto) 22 30 [place] % (Auto) 9 11 Eos % (Auto) 4 6 Baso % (Auto) 0 0 Neut # (Auto) 6.5 2.6 Lymph # (Auto) 2.2 1.5 [place] # (Auto) 0.9 H 0.5 Eos # (Auto) 0.4 0.3 Baso # (Auto) 0.0 0.0 Immature Gran # (Auto) 0.03 H 0.01 H Absolute Nucleated RBC 0.00 0.00 Immature Gran % 0 0 Nucleated RBC % 0 0 ESR 6 Sodium 141 Potassium 3.8 Chloride 105 Carbon Dioxide 26.5 Anion Gap 10 BUN 8 L Creatinine 0.9 Estim Creat Clear Calc 102.7 eGFR > 60 BUN/Creatinine Ratio 9 L Glucose 96 Calculated Osmolality 279 Calcium 9.4 Corrected Calcium 9.4 Phosphorus 4.2 Magnesium 2.1 Total Bilirubin 0.6 AST 13 ALT 8 L Alkaline Phosphatase 67 C-Reactive Prot, Quant < 0.5 Total Protein 6.8 Albumin 4.4 D Globulin 2.4 Albumin/Globulin Ratio 1.8 Quality Measures Quality Measures VTE prophylaxis Assessment & Plan Assessment Current Active Medications: Generic Name Dose Route Start Last Admin Trade Name Freq PRN Reason Stop Dose Admin Acetaminophen 650 mg 11/02/24 17:30 11/04/24 16:35 Acetaminophen 325 Mg Tablet PO 12/02/24 17:29 650 mg Q6H PRN Administration PAIN SCALE 1-3 (mild Hydrocodone Bitart/Acetaminophen 1 tab 11/02/24 17:34 11/04/24 17:39 Hydrocodone/Apap 5/325 Tablet PO 11/07/24 17:33 1 tab Q4HR PRN Administration PAIN SCALE 4-6 (Moderate Lactated Ringer's 1,000 mls @ 125 mls/hr 11/05/24 09:53 11/05/24 10:01 Lactated Ringers IV 11/05/24 17:52 125 mls/hr .Q8H ONE Administration Midazolam HCl 2 mg 11/02/24 17:35 Midazolam Inj 1 Mg/Ml Vial 2 Ml IVP 11/07/24 17:34 Q15MIN PRN Seizure Activity Morphine Sulfate 2 mg 11/02/24 17:30 11/05/24 10:00 Morphine Sulf Inj 10 Mg/Ml Vial IVP 11/07/24 17:29 2 mg Q2H PRN Administration PAIN SCALE 7-10 (Severe Protocol Ondansetron HCl 4 mg 11/02/24 17:30 11/05/24 03:16 Ondansetron Inj 2 Mg/Ml Inj 2 Ml IVP 12/02/24 17:29 4 mg Q6H PRN Administration NAUSEA OR VOMITING Protocol Plan Mrs. Nathan is a 24F with remote history of PNES, not on ASD, recently started taking bromocriptine for excess breast milk production, admitted for seizure workup and meningitis r/o. Pending EEG read, post dural puncture headache management. #C/F Seizure Pt reports headache, nausea, vomiting, photophobia, neck pain/stiffness, seizure-like activity shortly right after she took her first bromocriptine 2.5mg pill prescribed by her PCP. Patient received epi pen after seizure-like activity. 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 Elevated lactic acid DDX: seizure, epi administration Plan: - Pending EEG read - Discontinue bromocriptine 2.5mg PO - Seizure precaution - Swallow evaluation as needed - Neuro check Q4H - Aspiration precaution - Neuro consult, appreciate recs - F/U outpatient neurology #Bacterial vs viral meningitis - low suspicion Pt reports headache, nausea, vomiting, neck pain/stiffness, seizure-like activity shortly right after she took her first bromocriptine 2.5mg pill prescribed by her PCP. Patient received epi pen after seizure-like activity. ESR and CRP WNL CSF: clear, WBC 2, RBC 0, monocytes 100%, glucose 58, protein 31. CSF stain showed no organisms. 11/02/24: C-spine CT, CT head unremarkable. 11/03 MRI 2/o: Negative for acute hemorrhage, infarct, or demyelinating disease. DDX: migraine, bromocriptine side effect, meningitis, seizure-related injury Low suspicion for meningitis given afebrile, no leukocytosis, CSF cell count and differential unremarkable, CSF stain unremarkable. Blood cx NGTD on prelim. Plan: - Pending CSF analysis - BCx and CSF cx pending, pending viral CSF studies - Due to low suspicion of bacterial and viral meningitis, d/c Acyclovir, Rocephin, Vancomycin - Neuro consult, appreciate recs #Headache - present on admission #Low back pain - acute Patient had headache on admission, but she now reports worsening headache, low back pain at site of LP (had multiple previous LP attempts before IR was able to successfully obtain CSF), and nausea with sitting up Patient had throbbing headache, called rapid response 8.5, given dilaudid with improvement of sx. Patient continues to have throbbing headache, low back pain. No focal neuro deficits. Has [place] and morphine PRN. CT head 11/04 negative for acute hemorrhage. Most likely 2/2 post dural puncture headache Caffeine 300 mg IV x1 did not relieve symptoms Given LR IVF 1L Plan: - Plan for epidural blood patch today - Pain management with [place] 3/325 mg, Tylenol 650 mg, morphine 2 mg - Zofran 4 mg PRN #Right sided arm and leg pain, likely musculoskeletal secondary to seizure, improving Pt reports right sided arm and leg pain, fell during seizure. Continues to have right sided generalized weakness/myalgia. 5/5 strength upper and lower extremities b/l. 11/02/24: CXR, shoulder XR, wrist XR, elbow XR all negative. Plan: - Pain management as needed ([place] 5/325, Tylenol 650 PRN) #Normocytic normochromic anemia No signs of acute bleeding Plan: - CTM with daily CBC Dispo: Pending EEG read, management of post dural puncture headache DVT prophylaxis: SCDs GI prophylaxis: Protonix 20 Diet: normal Lines: Peripheral IV Code status: Full code Case discussed with my senior residents Dr. Carrington Farias (senior resident) and Dr. Adler (attending) Cassie Blankenship MD PGY1 Attending Provider Attestation/Addendum I have examined the patient, reviewed labs and imaging findings, discussed the case with the resident(s), and reviewed entered orders. I agree with the plan of care as outlined in this note, with these additional summaries/recommendations: Patient is a 24-year-old female with a medical history of ? childhood seizures?, anxiety, and remote history of substance abuse presents to [facility] emergency department on 11/02/2024 with chief complaint of seizure-like activity. Patient seen at bedside. No acute overnight events. Today patient endorses severe headache. She reports headache started after lumbar puncture and has progressively worsened. She also endorses pain at site of LP. Suspect the patient has developed a CSF leak. Patient will go for a blood patch with interventional radiology today. EEG returned showing no seizure-like activity and no antiepileptics required. Bacterial meningitis is ruled out. Cultures still show no growth to date. Likely etiology of patient's symptoms is bromocriptine which has been discontinued and patient counseled not to take anymore. Repeat hematology and chemistry panel in AM. Dr. Vitor MD
--- NOTE | 2024-11-05 10:59 | XR_ITS ---
Examination: Lumbar blood patch Fluoroscopy AP lumbar spine single view Date and time: November 05, 2024 1231 hours INDICATIONS: Status post lumbar puncture July 04, 2024 followed by a headaches TECHNIQUE AND FINDINGS: Informed consent provided. Timeout performed. Skin prepped over the lumbar puncture site in the lower back sterile drape applied hand hygiene 1% lidocaine administered for local anesthetic 3 cc of the patient's blood introduced subcutaneous as a blood patch No complication IMPRESSION: Successful lumbar blood patch
--- NOTE | 2024-11-05 11:40 | ESPR_ITS ---
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 Ddx includes provoked seizure by medication adverse effect vs possible meningitis, workup pending Interval history: 11/03/2024: CSF WBC 2, RBC 0, glucose 58, protein 31, viral panel pending No events overnight 11/04: has headache since LP. 11/05: had [employer] last night for headache and received dilaudid which helped. Impression: History of Psychogenic Nonepileptic Seizures Headache and seizures Recommendations: (Primary Team to order Controlled Medications) Unless specifically noted I Agree with Impression and Plan from previous Neurology note/consult. 1- Brain MRI No Acute Intracranial Abnormality reported. 2- Routine EEG reported as normal 3- Seizure precautions per state law (inpatient and outpatient) as reference please refer to https://www.epilepsy.com/lifestyle/waupcdg-alb-nwiawvhzmwayik/laws/ 4- Antiepileptic drug: Can hold off on Antiepileptic Drug till workup is completed (unless patient has another clinical event consistent with seizure) 5- Give Lorazepam 2 mg IV PRN for seizures > 3 min or > 3 episodes in one hour. Don't give more than 6-8 mg total in 24 hour period). If possible Please avoid aminophylline, theophylline, isoniazid, lindane, metronidazole, nalidixic acid, meropenem/imipenem, Quinolone antibiotics, cefepime, TCAs, bupropion, cyclosporine, chlorambucil, tramadol, clozapine, or other drugs which can lower seizure threshold. 6- follow-up on CSF viral panel 7- getting blood patch today. as much as possible avoid opioid medications for headache. [facility] Neurologist will follow up with results. Please contact [facility] Navigator to reach me if further questions/concerns arise. Examination: Examination done through interactive audio and video telecommunications with the assist of bedside nursing (when available) has headache and light sensitivity awake, alert, Oriented x3 speech no aphasia Extraocular movements intact face symmetric arms no drift (10s) coordination intact in finger to nose Patient / Family was informed the Neurology Consult would occur via TeleHealth consult by way of interactive audio and video telecommunications and consented to receiving care in this manner. Patient is being evaluated for possible acute neurologic impairment and high probability of imminent or life - threatening deterioration. I spent total of 15 minutes providing care to this patient, including time for face to face visit via telemedicine, review of medical records, imaging studies and discussion of findings with providers, the patient and / or family. Dr Damir Stearns [facility] For Inpatient follow-up with [facility] physician please call [facility] . This is not an outpatient service. Post hospital discharge, please contact hospital directly. Please do not communicate with [facility] physicians via secure chat. If you have any questions, Please contact [facility]. Please call or reconsult our service if there are any clinical or diagnostic changes. Most Recent Vital Signs Last Vital Signs Temp 96.6 F L 11/05/24 08:00 Pulse 64 11/05/24 08:00 Resp 16 11/05/24 08:00 BP 111/64 11/05/24 08:00 Pulse Ox 100 11/05/24 08:00 O2 Del Method Nasal Cannula 11/05/24 08:00 O2 Flow Rate 3 11/05/24 08:00 Laboratory-Coagulation Panel PT 11.9 Seconds (9.0-12.2) 11/03/24 04:54 INR 1.1 (0.9-1.3) 11/03/24 04:54 APTT 28.5 Seconds (22.0-36.0) 11/03/24 04:54
--- NOTE | 2024-11-05 11:58 | XR_ITS ---
Examination: CT lumbar spine, with intravenous contrast. 2-D sagittal reconstructions. 2-D coronal reconstructions. 3-D reconstructions. Date and time of exam:January 05, 2025 1322 hours INDICATIONS: Lower back pain 2 days CTDI: vol (mGy):23 DLP: (mGycm):744 Technique: Multiple 1.25 mm axial sections of the lumbar spine with 60 cc Isovue-300 intravenous have been obtained. 2-D sagittal and coronal reconstructions have been obtained. 3-D reconstructions have been obtained. Low dose protocols were performed. One or more of the following dose reduction techniques were used; automated exposure control, adjustment of the mA and/or KV according to patient size, use of iterative reconstruction technique. Findings: Satisfactory alignment lumbar vertebral bodies Small air densities in the posterior lower back consistent with patient's history of lumbar puncture No lumbar fracture Lumbar pedicles, laminae, transverse and posterior spinous processes intact No soft tissue abscess or hematoma No focal lumbar disc protrusion or epidural mass IMPRESSION: No focal lumbar disc protrusion or epidural mass
--- NOTE | 2024-11-05 12:52 | PC.NURSE ---
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
[2024-11-05] MEDS: MIDAZOLAM INJ 1 MG/ML VIAL 2 ML IVP (13:03)
--- NOTE | 2024-11-05 13:31 | PC.NURSE ---
[id number] patient post lumbar blood platch in Radiology department, tolerated procedure well. Report given to Patricia ORLANDO, patient transferred to CT department for CT scan and will be taken back to her room in tele 272
--- NOTE | 2024-11-05 15:31 | PC.SS ---
SS follow up note; IR today. Patient will discharge home within 1-2 days.
[2024-11-05] MEDS: ACETAMINOPHEN 325 MG TABLET 650 MG PO (20:33)
--- NOTE | 2024-11-05 22:13 | PC.LAC ---
Let Dr. Goyal know patient is requesting maintance fluids. per order LR d/c'd patient is unable to keep head up due to LP blood patch possibly until morning and she states she doesn't want to be dehydrated. patient has carrera in place per MD will review chart and if decided will place orders if needed
[2024-11-06] VITALS (7 sets, daily range): BP systolic 101–116; BP diastolic 49–70; PULSE 55–107; RESP 13–24; TEMP 35.9–36.9; O2SAT 91–100
[2024-11-06] MEDS: ACETAMINOPHEN 325 MG TABLET 650 MG PO ×2 (03:32→13:39)
[2024-11-06 06:29] LABS: Basophils # (Auto) 0.0 Thou/mm3 (0.0-0.2); Basophils % (Auto) 1 % (0-2.5); Eosinophils # (Auto) 0.3 Thou/mm3 (0.0-0.5); Eosinophils % (Auto) 4 % (0-10); Hematocrit 40.3 % (36.0-46.0); Hemoglobin 13.9 g/dL (12.0-16.0); Immature Granulocytes Auto 0.01 Thou/mm3 (0.00-0.00); Lymphocytes # (Auto) 1.1 Thou/mm3 (1.0-4.8); Lymphocytes % (Auto) 18 % (10-50); Mean Corpuscular HGB Conc 34.5 g/dl (31.0-37.0); Mean Corpuscular Hemoglobin 29.5 pg (25.0-35.0); Mean Corpuscular Volume 86 fL (80-100); Monocytes # (Auto) 0.5 Thou/mm3 (0.0-0.8); Monocytes % (Auto) 8 % (0-12); Neutrophils # (Auto) 4.3 Thou/mm3 (1.8-7.7); Neutrophils % (Auto) 69 % (37-80); Nucleated Red Blood Cell # 0.00 Thou/mm3 (0.00-0.00); Nucleated Red Blood Cell % 0 /100 WBC (0); Platelet Count 165 Thou/mm3 (140-440); RDW Standard Deviation 38.9 fL (36.4-46.3); Red Blood Count 4.71 Miln/mm3 (4.00-5.20); White Blood Count 6.2 Thou/mm3 (3.6-11.0)
[2024-11-06] MEDS: MORPHINE SULF INJ 10 MG/ML VIAL 2 MG IVP (07:14)
[2024-11-06 07:15] LABS: Alanine Aminotransferase < 7 U/L (10-49); Albumin, Serum 4.5 gm/dL (3.5-5.0); Albumin/Globulin Ratio 1.8 (1.2-2.2); Alkaline Phosphatase 71 U/L (46-116); Anion Gap 10 (7-16); Aspartate Amino Transferase 12 U/L (0-34); BUN/Creatinine Ratio 10 Ratio (12-20); Bilirubin,Total 0.9 mg/dL (0.3-1.2); Blood Urea Nitrogen 9 mg/dL (9-23); Calcium 9.7 mg/dL (8.3-10.6); Calcium (Corrected) 9.7 mg/dL (8.5-10.1); Carbon Dioxide 24.9 mMol/L (20.0-31.0); Chloride 105 mMol/L (98-107); Creatinine (Component) 0.9 mg/dL (0.6-1.3); Estimated Creatinine Clearance 102.7 mL/min (>60); Globulin 2.5 gm/dL (2.3-3.5); Glucose 99 mg/dL (74-106); Magnesium 1.7 mg/dL (1.6-2.6); Osmolality,Calculated 278 (275-295); Phosphorous 3.6 mg/dL (2.4-5.1); Potassium 4.4 mMol/L (3.4-5.1); Sodium 140 mMol/L (136-145); Total Protein 7.0 gm/dL (5.7-8.2); eGFR > 60 See Note
[2024-11-06] MEDS: ONDANSETRON INJ 2 MG/ML INJ 2 ML 4 MG IVP ×2 (07:19→23:04)
--- NOTE | 2024-11-06 08:17 | ESPR_ITS ---
<Statement entered by Jarrett Fraias MD - 11/06/24 20:41> Patient was examined and case was reviewed with team including attending physician. Note reviewed, I agree with most of its contents and agree with the patient's care as documented by Dr. Blankenship Patient seen today at the bedside found awake, alert, orientedx3. No overnight events reported. Vital signs stable at this time. Overall Headache and back pain improving requesting IV hydration as she feels dehydrated and is unable to eat or drink much due to her symptoms. Photophobia improving as well. Later in the afternoon patient had a rapid response due to seizures lasting around 2-3 minutes. Improved after administration of 2mg of Versed. Patient also received valproic acid, refrained from giving loading dose of keppra. Labs ordered, lactic, CK, EEG and Head CT ordered all found to be negative. Attempted to contact neurology however unsuccessful. Will continue to monitor at this time. Case discussed with my attending Dr. Vitor Farias MD PGY-2 Documentation for date of: 11/06/24 Subjective Subjective Interval history: Patient continues to endorse headache, though notes that epidural blood patch improved low back pain. Photophobia improved. Exam Vital Signs Temp Pulse Resp BP Pulse Ox O2 Del Method O2 Flow Rate 97.0 F 84 18 105/70 99 Room Air 3 11/06/24 08:00 11/06/24 08:00 11/06/24 08:00 11/06/24 08:00 11/06/24 08:00 11/06/24 08:00 11/05/24 16:00 Narrative Exam General: Lying in bed, using ice packs on neck and lower back Eye: PERRL, EOMI, normal conjunctiva, no scleral icterus HENT: Normocephalic, atraumatic, normal hearing, moist oral mucosa Neck: Neck stiffness. + Brudzinski, negative Kernig. Able to passively move neck vertically with less pain than previous exams Breast: Left breast larger than right, no induration, erythema, warmth, hardness, or tenderness to palpation Lungs: Clear to auscultation bilaterally, non-labored respirations, symmetric chest rise, no use of accessory muscles Heart: Normal S1 and S2, no S3 or S4 appreciated. Normal rate and regular rhythm, no murmurs, rubs gallops, or edema. Peripheral pulses intact bilaterally, capillary refill brisk distally Abdomen: Soft, non-tender, non-distended, normal bowel sounds. No guarding or rebound tenderness. Musculoskeletal: Normal range of motion, no pain on lower extremity movement Skin: Skin is warm, dry, no rashes or lesions. LP site dry, no drainage or active bleeding, no erythema or warmth. Neurologic: Alert, awake and oriented x3. CN II-XII grossly intact. Strength 5/5 b/l upper and lower extremities. Light touch intact and symmetric in b/l upper and lower extremities. Psychiatric: Cooperative, appropriate mood and affect Objective Labs 11/08/24 05:14 11/08/24 05:14 Labs: Laboratory Results - last 24 hr 11/06/24 06:06 WBC 6.2 RBC 4.71 Hgb 13.9 Hct 40.3 MCV 86 MCH 29.5 MCHC 34.5 RDW Std Deviation 38.9 Plt Count 165 Neut % (Auto) 69 Lymph % (Auto) 18 [place] % (Auto) 8 Eos % (Auto) 4 Baso % (Auto) 1 Neut # (Auto) 4.3 Lymph # (Auto) 1.1 [place] # (Auto) 0.5 Eos # (Auto) 0.3 Baso # (Auto) 0.0 Immature Gran # (Auto) 0.01 H Absolute Nucleated RBC 0.00 Immature Gran % 0 Nucleated RBC % 0 Sodium 140 Potassium 4.4 D Chloride 105 Carbon Dioxide 24.9 Anion Gap 10 BUN 9 Creatinine 0.9 Estim Creat Clear Calc 102.7 eGFR > 60 BUN/Creatinine Ratio 10 L Glucose 99 Calculated Osmolality 278 Calcium 9.7 Corrected Calcium 9.7 Phosphorus 3.6 Magnesium 1.7 Total Bilirubin 0.9 AST 12 ALT < 7 L Alkaline Phosphatase 71 Total Protein 7.0 Albumin 4.5 Globulin 2.5 Albumin/Globulin Ratio 1.8 Quality Measures Quality Measures VTE prophylaxis Assessment & Plan Assessment Current Active Medications: Generic Name Dose Route Start Last Admin Trade Name Freq PRN Reason Stop Dose Admin Acetaminophen 650 mg 11/02/24 17:30 11/06/24 03:32 Acetaminophen 325 Mg Tablet PO 12/02/24 17:29 650 mg Q6H PRN Administration PAIN SCALE 1-3 (mild Hydrocodone Bitart/Acetaminophen 1 tab 11/02/24 17:34 11/04/24 17:39 Hydrocodone/Apap 5/325 Tablet PO 11/07/24 17:33 1 tab Q4HR PRN Administration PAIN SCALE 4-6 (Moderate Midazolam HCl 2 mg 11/02/24 17:35 Midazolam Inj 1 Mg/Ml Vial 2 Ml IVP 11/07/24 17:34 Q15MIN PRN Seizure Activity Morphine Sulfate 2 mg 11/02/24 17:30 11/06/24 07:14 Morphine Sulf Inj 10 Mg/Ml Vial IVP 11/07/24 17:29 2 mg Q2H PRN Administration PAIN SCALE 7-10 (Severe Protocol Ondansetron HCl 4 mg 11/02/24 17:30 11/06/24 07:19 Ondansetron Inj 2 Mg/Ml Inj 2 Ml IVP 12/02/24 17:29 4 mg Q6H PRN Administration NAUSEA OR VOMITING Protocol Plan Mrs. Nathan is a 24F with remote history of PNES, not on ASD, recently started taking bromocriptine for excess breast milk production, admitted for seizure workup and meningitis r/o. Continues to endorse headache. #C/F Seizure Pt reports headache, nausea, vomiting, photophobia, neck pain/stiffness, seizure-like activity shortly right after she took her first bromocriptine 2.5mg pill prescribed by her PCP. Patient received epi pen after seizure-like activity. 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 Elevated lactic acid DDX: seizure, epi administration EEG pper tele-neuro: normal Plan: - As EEG was normal, no need to d/c on anti-seizure medications - Discontinue bromocriptine 2.5mg PO - Seizure precaution - Swallow evaluation as needed - Neuro check Q4H - Aspiration precaution - Neuro consulted, appreciate recs - F/U outpatient neurology #Bacterial vs viral meningitis - low suspicion Pt reports headache, nausea, vomiting, neck pain/stiffness, seizure-like activity shortly right after she took her first bromocriptine 2.5mg pill prescribed by her PCP. Patient received epi pen after seizure-like activity. ESR and CRP WNL CSF: clear, WBC 2, RBC 0, monocytes 100%, glucose 58, protein 31. CSF stain showed no organisms. 11/02/24: C-spine CT, CT head unremarkable. 11/03 MRI 2/o: Negative for acute hemorrhage, infarct, or demyelinating disease. DDX: migraine, bromocriptine side effect, meningitis, seizure-related injury Low suspicion for meningitis given afebrile, no leukocytosis, CSF cell count and differential unremarkable, CSF stain unremarkable. Blood cx NGTD on prelim. Plan: - Pending CSF analysis - BCx and CSF cx pending - Due to low suspicion of bacterial and viral meningitis, d/c Acyclovir, Rocephin, Vancomycin - Neuro consulted, appreciate recs #Headache - present on admission #Low back pain - resolved Patient had headache on admission, continues though now has improved photophobia. Continues to have dizziness and nausea upon sitting up Does not have hx migraines, no similar episode in the past CT head 11/04 negative for acute hemorrhage. Lumbar CT w/: no epidural mass, no abscess Low back pain at site of LP resolved with epidural blood patch, improved lower extremity range of motion (previously limited 2/2 pain) Caffeine 300 mg IV x1 did not relieve symptoms Zofran was ineffective at managing nausea upon sitting up Given migraine cocktail by tele-neurology, did not relieve headache. Nurse was not able to give Valproate (part of migraine cocktail) as she needed to confirm with tele-neurologist prior to administration, could not get in touch with him DDX: post dural puncture headache, migraine Plan: - Sumatriptan 50 mg PO x1 - Prochlorperazine 5 mg PO q6h - Avoid opioids 2/2 c/f rebound headache #Right sided arm and leg pain - resolved Pt reports right sided arm and leg pain, fell during seizure. Continues to have right sided generalized weakness/myalgia. / strength upper and lower extremities b/l. 11/02/24: CXR, shoulder XR, wrist XR, elbow XR all negative. Most likely MSK pain 2/2 seizure Plan: - Pain management with Tylenol 650 mg PO PRN #Normocytic normochromic anemia - resolved No signs of acute bleeding Plan: - CTM with daily CBC Dispo: Pending management of headache, pending tele-neuro ok to discharge. Plan for d/c 11/07 DVT prophylaxis: SCDs GI prophylaxis: Protonix 20 Diet: normal Lines: Peripheral IV Code status: Full code Case discussed with my senior residents Dr. Carrington Farias (senior resident) and Dr. Adler (attending) Cassie Blankenship MD PGY1 Attending Provider Attestation/Addendum I have examined the patient, reviewed labs and imaging findings, discussed the case with the resident(s), and reviewed entered orders. I agree with the plan of care as outlined in this note. Dr. Vitor MD
[2024-11-06] MEDS: HYDROcodone/APAP 5/325 TABLET 1 TAB PO (08:32)
[2024-11-06] MEDS: SODIUM CHLORIDE 0.9% 1000 ML 1,000 ML 100 ML IV (09:36)
--- NOTE | 2024-11-06 11:20 | PD.TNEUROPRO ---
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 Ddx includes provoked seizure by medication adverse effect vs possible meningitis, workup pending Interval history: 11/03/2024: CSF WBC 2, RBC 0, glucose 58, protein 31, viral panel pending No events overnight 11/04: has headache since LP. 11/05: had [employer] last night for headache and received dilaudid which helped. 11/06: had headache today. Impression: History of Psychogenic Nonepileptic Seizures Headache and seizures Recommendations: (Primary Team to order Controlled Medications) Unless specifically noted I Agree with Impression and Plan from previous Neurology note/consult. 1- Brain MRI No Acute Intracranial Abnormality reported. 2- Routine EEG reported as normal 3- Seizure precautions per state law (inpatient and outpatient) as reference please refer to https://www.epilepsy.com/lifestyle/vncgnhi-kpo-ozijlqzyjwxjka/laws/ 4- Antiepileptic drug: Can hold off on Antiepileptic Drug till workup is completed (unless patient has another clinical event consistent with seizure) 5- Give Lorazepam 2 mg IV PRN for seizures > 3 min or > 3 episodes in one hour. Don't give more than 6-8 mg total in 24 hour period). If possible Please avoid aminophylline, theophylline, isoniazid, lindane, metronidazole, nalidixic acid, meropenem/imipenem, Quinolone antibiotics, cefepime, TCAs, bupropion, cyclosporine, chlorambucil, tramadol, clozapine, or other drugs which can lower seizure threshold. 6- follow-up on CSF viral panel 7- as much as possible avoid opioid medications for headache. please order headache cocktail as IV Normal Saline 500ml , IV Depacon 500mg (if applicable should have negative test prior to administering Depacon), and IV Magnesium 1 gram x1; and IV Diphenhydramine (Benadryl) 25 mg with IV prochlorperazine (Compazine) 10 mg, ketorolac (Toradol) 30 mg IV or 60 mg IM (15 mg if age > 65 or weight < 50 kg) every 8 hours as needed. and IV Dexamethasone 4mg TID for day 1, BID day 2 and once on day 3. [facility] Neurologist will follow up with results. Please contact [facility] Navigator to reach me if further questions/concerns arise. Examination: Examination done through interactive audio and video telecommunications with the assist of bedside nursing (when available) awake, alert, Oriented x3 speech no aphasia Extraocular movements intact face symmetric arms no drift (10s) Patient / Family was informed the Neurology Consult would occur via TeleHealth consult by way of interactive audio and video telecommunications and consented to receiving care in this manner. Patient is being evaluated for possible acute neurologic impairment and high probability of imminent or life - threatening deterioration. I spent total of 15 minutes providing care to this patient, including time for face to face visit via telemedicine, review of medical records, imaging studies and discussion of findings with providers, the patient and / or family. Dr Damir Stearns [facility] For Inpatient follow-up with [facility] physician please call [facility] . This is not an outpatient service. Post hospital discharge, please contact hospital directly. Please do not communicate with [facility] physicians via secure chat. If you have any questions, Please contact [facility]. Please call or reconsult our service if there are any clinical or diagnostic changes. Most Recent Vital Signs Last Vital Signs Temp 97.0 F 11/06/24 08:00 Pulse 84 11/06/24 08:00 Resp 18 11/06/24 08:00 BP 105/70 11/06/24 08:00 Pulse Ox 99 11/06/24 08:00 O2 Del Method Room Air 11/06/24 08:00 O2 Flow Rate 3 11/05/24 16:00 Laboratory-Coagulation Panel PT 11.9 Seconds (9.0-12.2) 11/03/24 04:54 INR 1.1 (0.9-1.3) 11/03/24 04:54 APTT 28.5 Seconds (22.0-36.0) 11/03/24 04:54
[2024-11-06] MEDS: KETOROLAC INJ 30 MG/ML VIAL IVP ×3 (12:14→21:27)
[2024-11-06] MEDS: PROCHLORPERAZINE INJ 5 MG/ML VIAL 2 ML 10 MG IV (12:54)
[2024-11-06] MEDS: VALPROATE SOD INJ 500 MG in SODIUM CHLORIDE 0.9% 50 ML 55 MG IV (15:54)
--- NOTE | 2024-11-06 15:57 | XR_ITS ---
Examination: CT brain head without contrast. 2-D sagittal coronal reconstructions Date and time of exam:November 06, 2024 1622 hours Comparison November 04, 2024 INDICATIONS: Seizure today with rapid response, headaches 30 minutes CTDI: vol (mGy):48.5 DLP: (mGycm):1019 Technique: Multiple CT axial sections of the brain have been obtained, 5 mm slice thickness. Contrast has not been administered. 2-D sagittal, coronal reconstructions have been obtained Low dose protocols were performed. One or more of the following dose reduction techniques were used; automated exposure control, adjustment of the mA and/or KV according to patient size, use of iterative reconstruction technique. Findings: No significant ventricular enlargement. Intra-axial or extra-axial hemorrhage density is not seen. No mass effect or midline shift Basal cisterns are not remarkable. Fourth ventricle is midline. Cranial vault intact. Impression: Negative for acute hemorrhage, mass effect or midline shift
[2024-11-06] MEDS: MIDAZOLAM INJ 1 MG/ML VIAL 2 ML 2 MG IVP (16:05)
--- NOTE | 2024-11-06 16:10 | EVENTNT_ITS ---
<Statement entered by Jarrett Farisa MD - 11/06/24 18:01> Patient was examined and case was reviewed with team including attending physician. Note reviewed, I agree with most of its contents and agree with the patient's care as documented by Dr. Krzysztof Farias MD PGY-2 Documentation for date of: 11/06/24 Event Note Event Note: Rapid response called at 15:40 for seizure. Patient stated she was feeling off and then developed full body jerking movements c/w generalized tonic-clonic seizure. Patient seized for 3 minutes total. Given Versed 2 mg IV x1 with complete resolution of jerking motions, followed by post-ictal state. Ativan IV not available given hospital-wide shortage. Vital signs on arrival: 114/66 with HR 80, afebrile, RR 15. VSS throughout event. Blood glucose 104. Ordered CBC, CMP, Mg, Phos, Lactic acid, CK, Procal, CT head w/o, EEG. Ordered seizure precautions. Will follow up results. Resident on tele-neurology was made aware of the rapid response.
[2024-11-06 16:17] LABS: Lactate (Lactic Acid) 1.3 mMol/L (0.4-2.0)
[2024-11-06 16:20] LABS: Basophils # (Auto) 0.0 Thou/mm3 (0.0-0.2); Basophils % (Auto) 0 % (0-2.5); Eosinophils # (Auto) 0.1 Thou/mm3 (0.0-0.5); Eosinophils % (Auto) 2 % (0-10); Hematocrit 40.6 % (36.0-46.0); Hemoglobin 13.7 g/dL (12.0-16.0); Immature Granulocytes Auto 0.01 Thou/mm3 (0.00-0.00); Lymphocytes # (Auto) 0.9 Thou/mm3 (1.0-4.8); Lymphocytes % (Auto) 12 % (10-50); Mean Corpuscular HGB Conc 33.7 g/dl (31.0-37.0); Mean Corpuscular Hemoglobin 28.7 pg (25.0-35.0); Mean Corpuscular Volume 85 fL (80-100); Monocytes # (Auto) 0.5 Thou/mm3 (0.0-0.8); Monocytes % (Auto) 7 % (0-12); Neutrophils # (Auto) 6.3 Thou/mm3 (1.8-7.7); Neutrophils % (Auto) 80 % (37-80); Nucleated Red Blood Cell # 0.00 Thou/mm3 (0.00-0.00); Nucleated Red Blood Cell % 0 /100 WBC (0); Platelet Count 181 Thou/mm3 (140-440); RDW Standard Deviation 38.1 fL (36.4-46.3); Red Blood Count 4.77 Miln/mm3 (4.00-5.20); White Blood Count 8.0 Thou/mm3 (3.6-11.0)
[2024-11-06 16:56] LABS: Alanine Aminotransferase < 7 U/L (10-49); Albumin, Serum 4.7 gm/dL (3.5-5.0); Albumin/Globulin Ratio 1.8 (1.2-2.2); Alkaline Phosphatase 74 U/L (46-116); Anion Gap 12 (7-16); Aspartate Amino Transferase 12 U/L (0-34); BUN/Creatinine Ratio 10 Ratio (12-20); Bilirubin,Total 0.9 mg/dL (0.3-1.2); Blood Urea Nitrogen 9 mg/dL (9-23); Calcium 9.6 mg/dL (8.3-10.6); Calcium (Corrected) 9.6 mg/dL (8.5-10.1); Carbon Dioxide 21.7 mMol/L (20.0-31.0); Chloride 105 mMol/L (98-107); Creatine Kinase 71 U/L (34-171); Creatinine (Component) 0.9 mg/dL (0.6-1.3); Estimated Creatinine Clearance 102.7 mL/min (>60); Globulin 2.6 gm/dL (2.3-3.5); Glucose 116 mg/dL (74-106); Magnesium 1.8 mg/dL (1.6-2.6); Osmolality,Calculated 277 (275-295); Phosphorous 3.2 mg/dL (2.4-5.1); Potassium 3.6 mMol/L (3.4-5.1); Sodium 139 mMol/L (136-145); Total Protein 7.3 gm/dL (5.7-8.2); eGFR > 60 See Note
--- NOTE | 2024-11-06 17:24 | RESP.EEG ---
NOTIFIED EEG WILL BE COMPLETED DAY SHIFT 11/07 DUE TO NO TECH ON NOC 11/06
--- NOTE | 2024-11-06 17:54 | EEG_ITS ---
EEG Report EEG Interpretation Date/time of EE11/06/2024 [facility] Tele[facility]urology Consult Services Routine EEG Report Video Performed: Performed Demographics:Patient Name:???Debi Nathan Date of :???2000 Identification Number:??? Study Times: Study Start Time:???11/06/2024 11:02:00 Study End Time:???11/06/2024 11:28:00 Duration:???26?minutes Indication(s):Seizures Medication: VPA Technical Summary: This EEG was performed utilizing standard International 10-20 System of electrode placement. One channel electrocardiogram was monitored. Data were obtained and interpreted utilizing referential montage recording, with reformatting to longitudinal, transverse bipolar, and referential montages as necessary for interpretation. State(s): ?Awake ?Drowsy ?Asleep EKG:?Single Lead EKG was Regular Activation Procedures: Hyperventilation:?Performed : Photic Stimulation:?Performed : No Photic Driving EEG Description: During wakefulness, the background showed a continuous 9Hz posterior dominant alpha rhythm which was fairly modulated, symmetrical and reactive to eye opening. ?Photic stimulation or hyperventilation did not provoke any abnormal response. ?Drowsiness demonstrated a background attenuation. ?Sleep stage II showed a symmetrical appearance of sleep spindles and vertex waves. ?There was no clinical event or button-pushed event noted. ?Throughout the record, there was no epileptiform abnormality or lateralizing sign observed. ?Intermittent electrode and movement artifacts were noted. ? ? Impression: This is a normal awake, drowsy and sleep EEG. No epileptiform abnormality or lateralizing sign is observed. ?Note that an absence of epileptiform abnormality does not exclude a diagnosis of epilepsy. Dr Janice Palomares It is not live continuous monitoring by [facility]. [facility] For Inpatient follow-up with [facility] physician please call [facility] at . As we are not an outpatient service for any post hospital discharge needs please contact the hospital for assistance. If you have any questions for the [facility] physicians or need to reconsult for clinical or diagnostic changes please contact us via [facility] at . Signature :?Janice Palomares
--- NOTE | 2024-11-06 18:25 | PC.NURSE ---
patient c/o of not feeling right, and immediately after that patient went to a full blown seizures, where eyes rolled back and body arching back , whole body shakes uncontrollably, she did not urinate herselfl because she just went to bathroom just before this happen.
[2024-11-06] MEDS: PROCHLORPERAZINE MALEATE 5 MG TABLET PO (19:42)
[2024-11-07] VITALS: BP 110/66; PULSE 60; PULSE 88; RESP 16; TEMP 36.6; O2SAT 99
--- NOTE | 2024-11-07 00:56 | PC.WOUND ---
notified MD patient in pain to neck 09/09 at approximately 2350 - per Dr. Goyal give Benadryl 25mg ivp x 1 dose. no pain medication order at this time. notified MD at approximately 0052 of patient increase in pain of 10/09 to neck orders for 1 time dose of norco 5 for pain
[2024-11-07] MEDS: PROCHLORPERAZINE MALEATE 5 MG TABLET PO (01:15)
[2024-11-07] MEDS: HYDROcodone/APAP 5/325 TABLET 1 TAB PO (01:15)
[2024-11-07 04:00] VITALS: BP 98/60; PULSE 70; PULSE 87; RESP 16; TEMP 36.6; O2SAT 99
[2024-11-07 06:00] VITALS: BMI 28.5
[2024-11-07 06:05] LABS: Basophils # (Auto) 0.0 Thou/mm3 (0.0-0.2); Basophils % (Auto) 0 % (0-2.5); Eosinophils # (Auto) 0.2 Thou/mm3 (0.0-0.5); Eosinophils % (Auto) 3 % (0-10); Hematocrit 39.9 % (36.0-46.0); Hemoglobin 13.4 g/dL (12.0-16.0); Immature Granulocytes Auto 0.02 Thou/mm3 (0.00-0.00); Lymphocytes # (Auto) 1.1 Thou/mm3 (1.0-4.8); Lymphocytes % (Auto) 15 % (10-50); Mean Corpuscular HGB Conc 33.6 g/dl (31.0-37.0); Mean Corpuscular Hemoglobin 29.0 pg (25.0-35.0); Mean Corpuscular Volume 86 fL (80-100); Monocytes # (Auto) 0.7 Thou/mm3 (0.0-0.8); Monocytes % (Auto) 9 % (0-12); Neutrophils # (Auto) 5.6 Thou/mm3 (1.8-7.7); Neutrophils % (Auto) 73 % (37-80); Nucleated Red Blood Cell # 0.00 Thou/mm3 (0.00-0.00); Nucleated Red Blood Cell % 0 /100 WBC (0); Platelet Count 169 Thou/mm3 (140-440); RDW Standard Deviation 38.9 fL (36.4-46.3); Red Blood Count 4.62 Miln/mm3 (4.00-5.20); White Blood Count 7.7 Thou/mm3 (3.6-11.0)
[2024-11-07 06:24] LABS: HSV1 IgG Type Specific Ab* 7.36 INDEX; HSV2 IgG Type Specific Ab* <0.90 INDEX
[2024-11-07 06:39] LABS: Alanine Aminotransferase < 7 U/L (10-49); Albumin, Serum 4.6 gm/dL (3.5-5.0); Albumin/Globulin Ratio 1.8 (1.2-2.2); Alkaline Phosphatase 73 U/L (46-116); Anion Gap 11 (7-16); Aspartate Amino Transferase 11 U/L (0-34); BUN/Creatinine Ratio 12 Ratio (12-20); Bilirubin,Total 0.8 mg/dL (0.3-1.2); Blood Urea Nitrogen 12 mg/dL (9-23); Calcium 9.5 mg/dL (8.3-10.6); Calcium (Corrected) 9.5 mg/dL (8.5-10.1); Carbon Dioxide 24.4 mMol/L (20.0-31.0); Chloride 106 mMol/L (98-107); Creatinine (Component) 1.0 mg/dL (0.6-1.3); Estimated Creatinine Clearance 92.3 mL/min (>60); Globulin 2.5 gm/dL (2.3-3.5); Glucose 98 mg/dL (74-106); Magnesium 2.3 mg/dL (1.6-2.6); Osmolality,Calculated 280 (275-295); Phosphorous 4.1 mg/dL (2.4-5.1); Potassium 4.4 mMol/L (3.4-5.1); Sodium 141 mMol/L (136-145); Total Protein 7.1 gm/dL (5.7-8.2); eGFR > 60 See Note
[2024-11-07] MEDS: ACETAMINOPHEN 325 MG TABLET 650 MG PO (07:22)
[2024-11-07] MEDS: KETOROLAC INJ 30 MG/ML VIAL IVP (07:43)
[2024-11-07 08:00] VITALS: BP 107/67; PULSE 70; PULSE 84; RESP 15; TEMP 36.4; O2SAT 99
--- NOTE | 2024-11-07 08:03 | ESPR_ITS ---
<Statement entered by Jarrett Farias MD - 11/07/24 21:51> Patient was examined and case was reviewed with team including attending physician. Note reviewed, I agree with most of its contents and agree with the patient's care as documented by MS Ronny Wayne Patient seen today at the bedside found awake, alert, orientedx3. No overnight events reported. Vital signs stable at this time. still reporting headaches, decadron, toradol, magnesium, given. EKG ordered to monitor QTc as previous EKG shows prolonged QT. Based on next EKG can consider using other agents for intractable headache or status migrainosus. #Status Migrainosus Headache Headache > [address] head 11/04 negative for acute hemorrhage. Lumbar CT w/: no epidural mass, no abscess - IV tylenol has provided some relief for some hours - Decadron, magnesium, toradol, IV hydration given - Prochlorperazine 5 mg PO q6h - Avoid opioids 2/2 c/f rebound headache per tele-neuro #C/F Seizure Pt reports headache, nausea, vomiting, photophobia, neck pain/stiffness, seizure-like activity shortly right after she took her first bromocriptine 2.5mg pill prescribed by her PCP. 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 Lactic acid at time of admission 6.5 --> 1.3 (11/06). Head CT done on 11/06 showed no evidence of acute hemorrhage, midline shift, or mass effect. An EEG done on 11/06 was normal per tele-neuro team. - Continue Seizure precaution - Swallow evaluation as needed - Neuro check Q4H - Aspiration precaution - avoid medications that decrease seizure threshold - Neuro consulted, per recommendations avoid medications that can lower seizure threshold, avoid opioid medications, and f/u on CSF viral panel. - F/U outpatient neurology #Long QT syndrome noted on EKG on admission - monitor with serial EKGs - avoid QT prolonging agents, noted that this limits medication options for controlling headache #Bacterial vs viral meningitis - low suspicion Pt reports headache, nausea, vomiting, neck pain/stiffness, seizure-like activity shortly right after she took her first bromocriptine 2.5mg pill prescribed by her PCP. ESR and CRP WNL CSF: clear, WBC 2, RBC 0, monocytes 100%, glucose 58, protein 31. CSF stain showed no organisms. 11/02/24: C-spine CT, CT head unremarkable. 11/03 MRI 2/o: Negative for acute hemorrhage, infarct, or demyelinating disease. - Pending CSF viral panel analysis - Blood culture and CSF culture negative - Due to low suspicion of bacterial and viral meningitis, d/c Acyclovir, Rocephin, Vancomycin - Neuro consulted, appreciate recs Jarrett Farias MD PGY-2 Documentation for date of: 11/07/24 Subjective Subjective Interval history: Pt reports that she is still having intractable headaches. She states that her current medications are not helping for long periods of time. She states that she has had intractable nausea for the past few hours. She states she is unable to eat and has a sensation of acid reflux and is requesting medication to resolve that. Pt does not have any other questions or concerns at this time. Exam Vital Signs Temp Pulse Resp BP Pulse Ox O2 Del Method O2 Flow Rate 97.8 F 87 16 98/60 99 Room Air 3 11/07/24 04:00 11/07/24 04:00 11/07/24 04:00 11/07/24 04:00 11/07/24 04:00 11/07/24 04:00 11/05/24 16:00 Narrative Exam GENERAL: NAD, AAOx3 HEENT: Moist mucosa. Eyes open, symmetrical, & clear. CARDIO: Heart RRR, no obvious murmurs PULM: No noted coughing/dyspnea CTA B/L, no R/W/R GI: Abdomen soft, nondistended, no pain on palpation. BSx4. SKIN/MSK/EXT: No wounds/rashes/amputations. Pedal pulses present B/L NEURO: AAOx3, no focal neuro deficits, able to move all 4 extremities. Pt reports sensitivity to sound and mild sensitivity to light. Pt endorses headache that in unrelenting in course with a constant pressure sensation Objective Objective Narrative Objective Narrative: Pt appears alert and oriented x4. Abdomen is soft and nondistended. No discoloration or edema present in bilateral LE. Labs 11/08/24 05:14 11/08/24 05:14 Labs: Laboratory Results - last 24 hr 11/02/24 11/06/24 11/07/24 17:20 16:06 05:47 WBC 8.0 7.7 RBC 4.77 4.62 Hgb 13.7 13.4 Hct 40.6 39.9 MCV 85 86 MCH 28.7 29.0 MCHC 33.7 33.6 RDW Std Deviation 38.1 38.9 Plt Count 181 169 Neut % (Auto) 80 73 Lymph % (Auto) 12 15 Dane % (Auto) 7 9 Eos % (Auto) 2 3 Baso % (Auto) 0 0 Neut # (Auto) 6.3 5.6 Lymph # (Auto) 0.9 L 1.1 Dane # (Auto) 0.5 0.7 Eos # (Auto) 0.1 0.2 Baso # (Auto) 0.0 0.0 Immature Gran # (Auto) 0.01 H 0.02 H Absolute Nucleated RBC 0.00 0.00 Immature Gran % 0 0 Nucleated RBC % 0 0 Sodium 139 141 Potassium 3.6 D 4.4 D Chloride 105 106 Carbon Dioxide 21.7 24.4 Anion Gap 12 11 BUN 9 12 Creatinine 0.9 1.0 Estim Creat Clear Calc 102.7 92.3 eGFR > 60 > 60 BUN/Creatinine Ratio 10 L 12 Glucose 116 H 98 Calculated Osmolality 277 280 Lactic Acid 1.3 Calcium 9.6 9.5 Corrected Calcium 9.6 9.5 Phosphorus 3.2 4.1 Magnesium 1.8 2.3 Total Bilirubin 0.9 0.8 AST 12 11 ALT < 7 L < 7 L Alkaline Phosphatase 74 73 Total Creatine Kinase 71 D Total Protein 7.3 7.1 Albumin 4.7 4.6 Globulin 2.6 2.5 Albumin/Globulin Ratio 1.8 1.8 HSV I IgG Ab 7.36 H HSV II IgG <0.90 Quality Measures Quality Measures VTE prophylaxis Assessment & Plan Assessment Current Active Medications: Generic Name Dose Route Start Last Admin Trade Name Freq PRN Reason Stop Dose Admin Acetaminophen 650 mg 11/02/24 17:30 11/07/24 07:22 Acetaminophen 325 Mg Tablet PO 12/02/24 17:29 650 mg Q6H PRN Administration PAIN SCALE 1-3 (mild Midazolam HCl 2 mg 11/02/24 17:35 Midazolam Inj 1 Mg/Ml Vial 2 Ml IVP 11/07/24 17:34 Q15MIN PRN Seizure Activity Ondansetron HCl 4 mg 11/02/24 17:30 11/06/24 23:04 Ondansetron Inj 2 Mg/Ml Inj 2 Ml IVP 12/02/24 17:29 4 mg Q6H PRN Administration NAUSEA OR VOMITING Protocol Prochlorperazine Maleate 5 mg 11/06/24 09:37 11/07/24 01:15 Prochlorperazine Maleate 5 Mg Tablet PO 12/06/24 09:36 5 mg Q6HR PRN Administration NAUSEA OR VOMITING Plan #C/F Seizure Pt reports headache, nausea, vomiting, photophobia, neck pain/stiffness, seizure-like activity shortly right after she took her first bromocriptine 2.5mg pill prescribed by her PCP. 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 Lactic acid at time of admission 6.5 --> 1.3 (11/06). Head CT done on 11/06 showed no evidence of acute hemorrhage, midline shift, or mass effect. An EEG done on 11/06 was normal per tele-neuro team. - Continue Seizure precaution - Swallow evaluation as needed - Neuro check Q4H - Aspiration precaution - Neuro consulted, per recommendations avoid medications that can lower seizure threshold, avoid opioid medications, and f/u on CSF viral panel. - F/U outpatient neurology #Bacterial vs viral meningitis - low suspicion Pt reports headache, nausea, vomiting, neck pain/stiffness, seizure-like activity shortly right after she took her first bromocriptine 2.5mg pill prescribed by her PCP. ESR and CRP WNL CSF: clear, WBC 2, RBC 0, monocytes 100%, glucose 58, protein 31. CSF stain showed no organisms. 11/02/24: C-spine CT, CT head unremarkable. 11/03 MRI 2/o: Negative for acute hemorrhage, infarct, or demyelinating disease. - Pending CSF viral panel analysis - Blood culture and CSF culture negative - Due to low suspicion of bacterial and viral meningitis, d/c Acyclovir, Rocephin, Vancomycin - Neuro consulted, appreciate recs #Headache - present on admission Patient had headache on admission, continues though now has improved photophobia. Continues to have dizziness and nausea upon sitting up Does not have hx migraines, no similar episode in the past CT head 11/04 negative for acute hemorrhage. Lumbar CT w/: no epidural mass, no abscess - Sumatriptan 50 mg PO x1 - Prochlorperazine 5 mg PO q6h - Avoid opioids 2/2 c/f rebound headache per tele-neuro Plan has been discussed and approved with my senior resident Dr. Carrington Farias and my attending physician Dr. Vitor Wayne (Medical Student) Attending Provider Attestation/Addendum I have examined the patient, reviewed labs and imaging findings, discussed the case with the resident(s), and reviewed entered orders. I agree with the plan of care as outlined in this note, with these additional summaries/recommendations: Patient seen at bedside. No acute overnight events although patient did have an episode of seizure-like activity yesterday that lasted approximately 3 minutes with whole body shaking. By the time I arrived at bedside seizure relatively terminated. Lactic acid was checked which was normal after event. Suspicion is still high for psychogenic nonepileptic seizures. We will continue to hold off on antiepileptics. Repeat EEG ordered and original EEG did not reveal any seizure activity. Continue seizure precautions and we will follow-up with neurology. Patient continues to endorse the worst headache of her life. Possibly secondary to migraine headache versus post LP headache versus malingering versus very unlikely idiopathic intracranial hypertension. Headache started after LP and likely related. We will continue post LP headache management with steroids, Benadryl, Toradol and Compazine. Patient will stay hospitalized for intractable headache and pending repeat EEG. Patient and patient's mother updated at bedside and in agreement. All questions answered to satisfaction. Please see residents note for additional details and management. Dr. Vitor MD
[2024-11-07] MEDS: SODIUM CHLORIDE 0.9% 500 ML 500 ML 999 ML IV (09:14)
[2024-11-07] MEDS: DEXAMETHASONE SOD PHOS INJ 4 MG/ML VIAL IV ×2 (09:15→20:32)
[2024-11-07] MEDS: PROCHLORPERAZINE INJ 5 MG/ML VIAL 2 ML 10 MG IV (09:18)
--- NOTE | 2024-11-07 09:22 | ESPR_ITS ---
Tele Neuro Progress Note Progress Note Date 11/07/24 [facility] Tele[facility]urology Progress Note Date of Service 11/07/2024 Presentation: Based on previous neurology note(s) : 24 year old female with history of PNES presenting with sudden onset of headache and seizure after taking bromocriptine, etiology uncertain. Ddx includes provoked seizure by medication adverse effect vs possible meningitis, workup pending Interval history: 11/03/2024: CSF WBC 2, RBC 0, glucose 58, protein 31, viral panel pending No events overnight 11/04: has headache since LP. 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 11/06: had headache today. 11/07: had rapid response yesterday for seizure like event. got single dose of depacon. Impression: History of Psychogenic Nonepileptic Seizures Headache and seizures Recommendations: (Primary Team to order Controlled Medications) Unless specifically noted I Agree with Impression and Plan from previous Neurology note/consult. 1- Brain MRI No Acute Intracranial Abnormality reported. 2- Routine EEG reported as normal; if seizure like events happen again will need EEG monitoring to check if events are epileptic or nonepileptic ; for now another routine EEG is ordered and pending; if EEG cannot be completed (including reporting) over the weekend, it is reasonable to transfer to another hospital with in house neurologist and EEG capability. 3- Seizure precautions per state law (inpatient and outpatient) as reference please refer to https://www.epilepsy.com /lifestyle/asdavnt-uyv-hfuzzwgpmhdmhk/laws/ 4- Antiepileptic drug: Can hold off on Antiepileptic Drug for now 5- Give Lorazepam 2 mg IV PRN for seizures > 3 min or > 3 episodes in one hour. Don't give more than 6-8 mg total in 24 hour period). If possible Please avoid aminophylline, theophylline, isoniazid, lindane, metronidazole, nalidixic acid, meropenem/imipenem, Quinolone antibiotics, cefe pime, TCAs, bupropion, cyclosporine, chlorambucil, tramadol, clozapine, or other drugs which can lower seizure threshold. 6- follow-up on CSF viral panel 7- as much as possible avoid opioid medications for headache. continue headache cocktail (today is day 2) as IV Normal Saline 500ml , and IV Magnesium 1 gram x1; and IV Diphenhydramine (Benadryl) 25 mg with IV prochlorperazine (Compazine) 10 mg, ketorolac (Toradol) 30 mg IV or 60 mg IM (15 mg if age > 65 or weight < 50 kg) every 8 hours as needed. and IV Dexamethasone 4mg TID for day 1, BID day 2 and once on day 3. (if this round does not work then pain management consult is recommended; avoid opioid medications for headache management) [facility] Neurologist will follow up with results. Please contact [facility] Navigator to reach me if further questions/concerns arise. 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 Patient is being evaluated for possible acute neurologic impairment and high probability of imminent or life - threatening deterioration. I spent total of 15 minutes providing care to this patient, including time for face to face visit via telemedicine, review of medical records, imaging studies and discussion of findings with providers, the patient and / or family. Dr Damir Stearns [facility] For Inpatient follow-up with [facility] physician please call [facility] . This is not an outpatient service. Post hospital discharge, please contact hospital directly. Please do not communicate with [facility] physicians via secure chat. If you have any questions, Please contact [facility]. Please call or reconsult our service if there are any clinical or diagnostic changes. Most Recent Vital Signs Last Vital Signs Temp 97.5 F 11/07/24 08:00 Pulse 84 11/07/24 08:00 Resp 15 11/07/24 08:00 BP 107/67 11/07/24 08:00 Pulse Ox 99 11/07/24 08:00 O2 Del Method Room Air 11/07/24 08:00 O2 Flow Rate 3 08/06/25 16:00 Laboratory-Coagulation Panel PT 11.9 Seconds (9.0-12.2) 11/03/24 04:54 INR 1.1 (0.9-1.3) 11/03/24 04:54 APTT 28.5 Seconds (22.0-36.0) 11/03/24 04:54
[2024-11-07 12:00] VITALS: BP 114/70; PULSE 79; PULSE 81; RESP 81; TEMP 36.6; O2SAT 100
[2024-11-07] MEDS: ACETAMINOPHEN IVPB 1,000 MG/100 ML VIAL 250 MG IV ×2 (12:27→17:31)
--- NOTE | 2024-11-07 14:37 | PC.SS ---
SS follow up note; Patient had a Seizure yesterday and is being monitored, patient will discharge home when medically cleared.
--- NOTE | 2024-11-07 14:43 | RESP.EEG ---
second eeg was completed and ready for review will call in to the tele- Neurology
[2024-11-07 16:00] VITALS: BP 118/85; PULSE 78; PULSE 79; RESP 19; TEMP 36.7; O2SAT 96
--- NOTE | 2024-11-07 17:55 | EEG_ITS ---
EEG Report EEG Interpretation Date/time of EE11/07/2024 [facility] Tele[facility] Consult Services Routine EEG Report Video Performed: Not performed Demographics:Patient Name:???Debi Nathan Date of :???2000 Identification Number:??? Study Times: Study Start Time:???11/07/2024 14:02:00 Study End Time:???11/07/2024 14:25:00 Duration:???23?minutes Indication(s):Spells, Eval for Seizures Technical Summary: This EEG was performed utilizing standard International 10-20 System of electrode placement. One channel electrocardiogram was monitored. Data were obtained and interpreted utilizing referential montage recording, with reformatting to longitudinal, transverse bipolar, and referential montages as necessary for interpretation. State(s): ?Awake ?Drowsy ?Asleep EKG:?Single Lead EKG was Regular Activation Procedures: Hyperventilation:?Performed :Photic Stimulation:?Performed : No Photic Driving EEG Description: During wakefulness, the background showed a continuous 8Hz posterior dominant alpha rhythm which was fairly modulated, symmetrical and reactive to eye opening. ?Photic stimulation or hyperventilation did not provoke any abnormal response. ?Drowsiness demonstrated a background attenuation. ?Sleep stage II showed a symmetrical appearance of sleep spindles and vertex waves. ?There was no clinical event or button-pushed event noted. ?Throughout the record, there was no epileptiform abnormality or lateralizing sign observed. ?Intermittent electrode and movement artifacts were noted. ? ? Impression: This is a normal awake, drowsy and sleep EEG. No epileptiform abnormality or lateralizing sign is observed. ?Note that an absence of epileptiform abnormality does not exclude a diagnosis of epilepsy. Dr Janice Palomares It is not live continuous monitoring by [facility]. [facility] For Inpatient follow-up with [facility] physician please call [facility] at . As we are not an outpatient service for any post hospital discharge needs please contact the hospital for assistance. If you have any questions for the [facility] physicians or need to reconsult for clinical or diagnostic changes please contact us via [facility] at . Signature :?Janice Palomares
[2024-11-07 20:00] VITALS: BP 103/57; PULSE 72; PULSE 81; RESP 16; TEMP 36.4; O2SAT 98
[2024-11-08] VITALS: BP 109/65; PULSE 72; PULSE 89; RESP 12; TEMP 36.3; O2SAT 100
[2024-11-08] MEDS: ACETAMINOPHEN IVPB 1,000 MG/100 ML VIAL 250 MG IV ×2 (00:02→07:51)
[2024-11-08 04:00] VITALS: BP 107/59; PULSE 54; PULSE 60; RESP 14; TEMP 36.6; O2SAT 96
[2024-11-08 06:00] VITALS: BMI 28.5
[2024-11-08 06:08] LABS: Basophils # (Auto) 0.0 Thou/mm3 (0.0-0.2); Basophils % (Auto) 0 % (0-2.5); Eosinophils # (Auto) 0.0 Thou/mm3 (0.0-0.5); Eosinophils % (Auto) 0 % (0-10); Hematocrit 39.5 % (36.0-46.0); Hemoglobin 13.7 g/dL (12.0-16.0); Immature Granulocytes Auto 0.03 Thou/mm3 (0.00-0.00); Lymphocytes # (Auto) 1.0 Thou/mm3 (1.0-4.8); Lymphocytes % (Auto) 11 % (10-50); Mean Corpuscular HGB Conc 34.7 g/dl (31.0-37.0); Mean Corpuscular Hemoglobin 30.0 pg (25.0-35.0); Mean Corpuscular Volume 87 fL (80-100); Monocytes # (Auto) 0.6 Thou/mm3 (0.0-0.8); Monocytes % (Auto) 6 % (0-12); Neutrophils # (Auto) 7.9 Thou/mm3 (1.8-7.7); Neutrophils % (Auto) 83 % (37-80); Nucleated Red Blood Cell # 0.00 Thou/mm3 (0.00-0.00); Nucleated Red Blood Cell % 0 /100 WBC (0); Platelet Count 195 Thou/mm3 (140-440); RDW Standard Deviation 39.9 fL (36.4-46.3); Red Blood Count 4.56 Miln/mm3 (4.00-5.20); White Blood Count 9.5 Thou/mm3 (3.6-11.0)
[2024-11-08 06:39] LABS: Alanine Aminotransferase < 7 U/L (10-49); Albumin, Serum 4.7 gm/dL (3.5-5.0); Albumin/Globulin Ratio 1.8 (1.2-2.2); Alkaline Phosphatase 77 U/L (46-116); Anion Gap 11 (7-16); Aspartate Amino Transferase < 10 U/L (0-34); BUN/Creatinine Ratio 18 Ratio (12-20); Bilirubin,Total 0.7 mg/dL (0.3-1.2); Blood Urea Nitrogen 14 mg/dL (9-23); Calcium 9.6 mg/dL (8.3-10.6); Calcium (Corrected) 9.6 mg/dL (8.5-10.1); Carbon Dioxide 24.1 mMol/L (20.0-31.0); Chloride 106 mMol/L (98-107); Creatinine (Component) 0.8 mg/dL (0.6-1.3); Estimated Creatinine Clearance 115.4 mL/min (>60); Globulin 2.6 gm/dL (2.3-3.5); Glucose 125 mg/dL (74-106); Magnesium 2.1 mg/dL (1.6-2.6); Osmolality,Calculated 282 (275-295); Phosphorous 4.1 mg/dL (2.4-5.1); Potassium 4.1 mMol/L (3.4-5.1); Sodium 141 mMol/L (136-145); Total Protein 7.3 gm/dL (5.7-8.2); eGFR > 60 See Note
[2024-11-08 08:00] VITALS: BP 115/79; PULSE 104; PULSE 99; RESP 17; TEMP 36.7; O2SAT 99
[2024-11-08] MEDS: DEXAMETHASONE SOD PHOS INJ 4 MG/ML VIAL IV (08:00)
--- NOTE | 2024-11-08 09:02 | ESDS_ITS ---
Planned Discharge Date 11/08/24 DS: Providers Provider Date of admission: 11/02/24 18:02 Primary care physician: Physician No Primary/Family Admitting Provider: Harinder Adler MD Attending Provider on Admission: Harinder Adler MD Consults: 11/02/24 13:09 Consult to Neurology / Tele-Neurology Stat Comment: Consulting Provider: [facility] 11/02/24 22:13 Referral Registered Dietitian Routine Comment: DAILY EPISODES OF DIARRHEA Attending Provider on DC: Dr. Harinder Adler Discharging Provider: Cassie Blankenship MD PGY1 DS: Diagnosis Problem List Completed Was Problem List Reviewed/Reconciled?: Yes Hospital Course Hospital Course Hospital course: Hospital Course Ms. Nathan is a 24 y/o woman with PMH PNES (not an ASD) who presented to the ED on 11/02 after having a witnessed seizure associated with nausea, vomiting, neck pain/stiffness, photophobia. These symptoms started after taking a new medication, Bromocriptine, for excessive breast milk production. Admitted for bacterial vs viral meningitis and seizure workup. She was started on empiric meningitis antibiotics and acyclovir. Initial lactic acid was elevated, repeat L A downtrended after administration of IVF. CSF analysis unremarkable, discontinued meningitis empiric treatment. Patient experienced low back pain after LP, resolved with epidural blood patch. Patient continued to report headaches, initially treated with opioids. Brain imaging and EEG unremarkable. Of note, patient had one 3 minute seizure-like episode for which IV versed was given as there is a hospital-wide shortage of Ativan. Follow up lactic acid, CK, and CT head w/o were unremarkable, most likely secondary to PNES. Per tele-neuro recommendations, patient started on Dexamethasone 4 mg IV TID day 1 (11/07), BID day 2 (11/08), once (11/09), then discontinue. Today, patient reports improved headache with Tylenol. Will be discharged with abx for UTI, as patient developed sx after carrera catheter placement. Patient stable and medically cleared for discharge. Diagnoses #Post dural puncture headache - improved #Post dural puncture low back pain - resolved #PNES Discharge Instructions Stop taking bromocriptine. Take dexamethasone 4 mg tonight and tomorrow morning, total 2 doses. Take Tylenol as needed for pain up to 4 times a days. Take cephalexin 500 mg twice daily for 5 days for UTI. Follow up with neurology and PCP within 2 weeks. Cassie Blankenship MD PGY1 Time Spent with Patient Time attestation: Total time spent providing and/or coordinating discharge services: Time spent: Greater than 30 minutes Exam Vital Signs Temp Pulse Resp BP Pulse Ox O2 Del Method O2 Flow Rate 98.1 F 99 17 115/79 99 Room Air 3 11/08/24 08:00 11/08/24 08:00 11/08/24 08:00 11/08/24 08:00 11/08/24 08:00 11/08/24 08:00 11/05/24 16:00 Narrative Exam General: Lying comfortably in bed, no distress Eye: PERRL, EOMI, normal conjunctiva, no scleral icterus HENT: Normocephalic, atraumatic, normal hearing, moist oral mucosa Neck: Neck supple, non-tender Breast: Left breast larger than right, no induration, erythema, warmth, hardness, or tenderness to palpation Lungs: Clear to auscultation bilaterally, non-labored respirations, symmetric chest rise, no use of accessory muscles Heart: Normal S1 and S2, no S3 or S4 appreciated. Normal rate and regular rhythm, no murmurs, rubs gallops, or edema. Peripheral pulses intact bilaterally, capillary refill brisk distally Abdomen: Soft, non-tender, non-distended, normal bowel sounds. No guarding or rebound tenderness. Musculoskeletal: NO tenderness to palpation of lower back at site of and around LP site Skin: Skin is warm, dry, no rashes or lesions. LP site dry, no drainage or active bleeding, no erythema or warmth. Neurologic: Alert, awake and oriented x3. CN II-XII grossly intact. Strength 5/5 b/l upper and lower extremities. Light touch intact and symmetric in b/l upper and lower extremities. Psychiatric: Cooperative, appropriate mood and affect Discharge Plan Plan Patient Disposition: HOME (Self Care) Patient condition on transfer: Stable Care Plan Goals: Stop taking bromocriptine. Take dexamethasone 4 mg tonight and tomorrow morning, total 2 doses. Take Tylenol as needed for pain up to 4 times a days. Take cephalexin 500 mg twice daily for 5 days for UTI. Follow up with neurology and PCP within 2 weeks. Prescriptions/Referrals Prescriptions/Med Rec: New dexamethasone 4 mg tablet 4 mg PO QDAY Qty: 2 0RF acetaminophen 325 mg capsule 325 mg PO QID PRN (Reason: headache) Qty: 30 0RF cephalexin 500 mg capsule 500 mg PO BID 5 Days Qty: 10 0RF Discontinued bromocriptine 2.5 mg tablet 2.5 mg PO DAILY Patient Comments: TAKE 1 TABLET BY MOUTH EVERY DAY Referrals: [facility] [Outside] No Primary/Family,Physician [Primary Care Provider] - Patient/Caregiver Discharge Instructions Education Materials: Urinary Tract Infections in Women, Understanding Headache Pain Print Language: Emirati Stand Alone Forms: [employer] Award Info., Patient Portal Info Letter Discharge Order Discharge Orders: Discharge (Routine); Ordered 11/08/24 Ordered By: Miah Thacker Quality Discharge Quality Measures VTE prophylaxis MD Attestestation MD Attestation I have examined the patient, reviewed labs and imaging findings, discussed the case with the resident(s), and reviewed entered orders. I agree with the plan of care as outlined in this note. Time Spent: [address] Vitor MD
[2024-11-08 12:00] VITALS: BP 113/73; PULSE 71; RESP 21; TEMP 36.7; O2SAT 99
[2024-11-11 13:51] LABS: Albumin, CSF 13.6 mg/dL (8.0-42.0); IgG Index, CSF 0.52 (<0.70); IgG, CSF 2.1 mg/dL (0.8-7.7); IgG, Serum 1190 mg/dL (600-1640); Synthesis Rate IgG, CSF -3.2 mg/24 h (-9.9 TO +3.3)
[2024-11-12 06:18] LABS: Albumin, Serum 4.0 g/dL (3.6-5.1)
[2024-11-18 17:48] LABS: Enterovirus Source NOT GIVEN; HSV-1 DNA, CSF NOT DETECTED copies/mL; HSV-1 DNA, CSF Source CEREBROSPINAL FLUID; West Nile Virus (IgG), CSF <1.30
[2024-11-19 06:51] LABS: Enterovirus RNA, PCR CSF NOT DETECTED; HSV-2 DNA, CSF NOT DETECTED copies/mL; VDRL, CSF Qual* NON-REACTIVE; West Nile Virus (IgM), CSF <0.90
[2024-11-24 06:54] LABS: Angiotensin Convert Enz, CSF* <5 U/L (< OR = 15); Myelin Basic Protein, CSF* <2.0 mcg/L (< OR = 4.0)
== END 2024-11-08 12:02 | disposition home or self-care (01) | DRG 53 ==
LOC: SERX 17:33 → SERHOLD 18:03 → S2NX 20:19
PROVIDERS: Student in an Organized Health Care Education/Training Program; Admitting Provider Student in an Organized Health Care Education/Training Program; Visit Provider Student in an Organized Health Care Education/Training Program
DX: G40.89 Other seizures (principal); T42.8X5A Adverse effect of antiparkinsonism drugs and other central muscle-tone depressants, initial encounter; W19.XXXA Unspecified fall, initial encounter; F12.90 Cannabis use, unspecified, uncomplicated; F43.10 Post-traumatic stress disorder, unspecified; F19.10 Other psychoactive substance abuse, uncomplicated; E87.6 Hypokalemia; D64.9 Anemia, unspecified; M79.606 Pain in leg, unspecified; E87.20 Acidosis, unspecified; F41.9 Anxiety disorder, unspecified; G43.901 Migraine, unspecified, not intractable, with status migrainosus; K21.9 Gastro-esophageal reflux disease without esophagitis; N39.0 Urinary tract infection, site not specified; G97.1 Other reaction to spinal and lumbar puncture; G96.00 Cerebrospinal fluid leak, unspecified; Y84.4 Aspiration of fluid as the cause of abnormal reaction of the patient, or of later complication, without mention of misadventure at the time of the procedure; Z62.819 Personal history of unspecified abuse in childhood; Z87.891 Personal history of nicotine dependence
CPT/HCPCS: 36415; 70450; 70551; 71045; 72125; 72132; 73020; 73070; 73100; 77002; 80053; 80061; 80202; 80307; 80320; 81001; 81025; 82040; 82042; 82164; 82550; 82784; 82945; 83036; 83605; 83690; 83735; 83873; 83916; 84100; 84132; 84157; 84439; 84443; 85025; 85610; 85652; 85730; 86140; 86171; 86592; 86695; 86696; 86788; 86789; 87040; 87070; 87081; 87205; 87498; 87502; 87530; 89051; 92610; 93005; 95816; 96361; 96365; 96366; 96375; 96376; 99284; A4649; J0131; J0133; J0696; J0780; J1100; J1171; J1200; J1885; J2250; J2270; J2405; J2470; J3370; J3375; J3475; J3480; J7030; J7050; J7120; J7999; Q0164; Q9967; A9270; G0480

== ENCOUNTER 2024-12-30 09:47 | Emergency (ER) | payer MEDICAID, SELFPAY ==
[2024-12-30 09:59] VITALS: BP 130/83; PULSE 90; RESP 18; TEMP 37; O2SAT 98; BMI 26.7
--- NOTE | 2024-12-30 10:13 | PD.EDRME ---
Rapid Medical Screening Exam RME Arrival date/time: 12/30/24 09:47 24-year-old female with history of seizures presents to the emergency room with a chief complaint of a 10 out of 10 headache, neck tenderness x 1 day. I have greeted and performed a focused initial assessment of this patient. A comprehensive ED assessment and evaluation of the patient, analysis of all test results, and completion of the medical decision making process will be conducted by additional ED providers. Chief Complaint: Headache Vital signs: Vital Signs Temperature 98.6 F 12/30/24 09:59 Pulse Rate 90 12/30/24 09:59 Respiratory Rate 18 12/30/24 09:59 Blood Pressure 130/83 12/30/24 09:59 Pulse Oximetry (%) 98 12/30/24 09:59 Oxygen Delivery Method Room Air 12/30/24 09:59 Vital signs reviewed by provider: Yes
[2024-12-30 10:31] LABS: Basophils # (Auto) 0.0 Thou/mm3 (0.0-0.2); Basophils % (Auto) 1 % (0-2.5); Eosinophils # (Auto) 0.6 Thou/mm3 (0.0-0.5); Eosinophils % (Auto) 8 % (0-10); Hematocrit 39.8 % (36.0-46.0); Hemoglobin 13.4 g/dL (12.0-16.0); Immature Granulocytes Auto 0.02 Thou/mm3 (0.00-0.00); Lymphocytes # (Auto) 1.0 Thou/mm3 (1.0-4.8); Lymphocytes % (Auto) 13 % (10-50); Mean Corpuscular HGB Conc 33.7 g/dl (31.0-37.0); Mean Corpuscular Hemoglobin 29.4 pg (25.0-35.0); Mean Corpuscular Volume 87 fL (80-100); Monocytes # (Auto) 0.7 Thou/mm3 (0.0-0.8); Monocytes % (Auto) 9 % (0-12); Neutrophils # (Auto) 5.3 Thou/mm3 (1.8-7.7); Neutrophils % (Auto) 69 % (37-80); Nucleated Red Blood Cell # 0.00 Thou/mm3 (0.00-0.00); Nucleated Red Blood Cell % 0 /100 WBC (0); Platelet Count 204 Thou/mm3 (140-440); RDW Standard Deviation 41.0 fL (36.4-46.3); Red Blood Count 4.56 Miln/mm3 (4.00-5.20); White Blood Count 7.6 Thou/mm3 (3.6-11.0)
[2024-12-30 10:50] LABS: Alanine Aminotransferase 11 U/L (10-49); Albumin, Serum 4.7 gm/dL (3.5-5.0); Albumin/Globulin Ratio 1.9 (1.2-2.2); Alkaline Phosphatase 71 U/L (46-116); Anion Gap 8 (7-16); Aspartate Amino Transferase 16 U/L (0-34); BUN/Creatinine Ratio 14 Ratio (12-20); Bilirubin,Total 0.8 mg/dL (0.3-1.2); Blood Urea Nitrogen 11 mg/dL (9-23); Calcium 9.9 mg/dL (8.3-10.6); Calcium (Corrected) 9.9 mg/dL (8.5-10.1); Carbon Dioxide 27.2 mMol/L (20.0-31.0); Chloride 106 mMol/L (98-107); Creatinine (Component) 0.8 mg/dL (0.6-1.3); Estimated Creatinine Clearance 114.4 mL/min (>60); Globulin 2.5 gm/dL (2.3-3.5); Glucose 89 mg/dL (74-106); Osmolality,Calculated 279 (275-295); Potassium 4.0 mMol/L (3.4-5.1); Sodium 141 mMol/L (136-145); Total Protein 7.2 gm/dL (5.7-8.2); eGFR > 60 See Note
--- NOTE | 2024-12-30 11:07 | EDNOTE_ITS ---
ED Headache RME/HPI General Chief Complaint: Headache Stated Complaint: SEVERE HEADACHE, NECK PAIN, CONGESTED SINUSES Time Seen by Provider: 12/30/24 10:25 Arrival date/time: 12/30/24 09:47 RME / HPI RME / HPI Narrative: 12/30/24 09:47 24-year-old female with history of seizures presents to the emergency room with a chief complaint of a 10 out of 10 headache, neck tenderness x 1 day. I have greeted and performed a focused initial assessment of this patient. A comprehensive ED assessment and evaluation of the patient, analysis of all test results, and completion of the medical decision making process will be conducted by additional ED providers. DR. LONGO MAIN ED EVALUATION 24 year old female presenting to the ED with a persistent headache. Describes the headache as a throbbing sensation that begins on the face, radiates to the front and top of her head, and extends down to the back of her head. The headache is present from the time she wakes up until she falls asleep, with only minimal relief from ibuprofen. Associated with on/off lightheadedness, neck stiffness, on/off spacy vision and feeling like her eyes are pulsating. Patient states she will occasional have clear rhinorrhea without nasal congestion. She reports that the rhinorrhea occurs suddenly and not improved with blowing nose. The patient reports recent history of a seizure after taking Bromocriptine and was admitted to the hospital from 11/02/2024 to 11/08/2024 for evaluation of suspected bacterial vs viral meningitis and seizure workup. The workup was negative, and she was discharged home. Since arriving home, her headache has progressively worsened. She denies fever, chills, chest pain, cough, shortness of breath, nausea, vomiting, diarrhea, or urinary symptoms. Related Data Previous Rx's ?Medication ?Instructions ?Recorded acetaminophen 325 mg capsule 325 mg PO QID PRN headach e #30 caps 11/08/24 dexamethasone 4 mg tablet 4 mg PO QDAY #2 tabs 5 ketorolac 10 mg tablet 10 mg PO Q8H PRN pain 5 days #20 12/30/24 tabs moxifloxacin 400 mg tablet 400 mg PO Q24H 10 days #10 tabs 12/30/24 prochlorperazine maleate 5 mg 5 mg PO TID PRN nausea a nd 12/30/24 tablet (Compazine) vomiting #10 tabs Allergies Allergy/AdvReac Type Severity Reaction Status Date / Time bee pollen Allergy Severe Unconscious Verified 12/30/24 09:51 dexamethasone Allergy Severe Seizure Verified 12/30/24 13:22 Penicillins Allergy Unknown Verified 12/30/24 09:51 milk AdvReac Severe Diarrhea Verified 12/30/24 09:51 Sulfa (Sulfonamide AdvReac Severe Anaphylaxis Verified 12/30/24 09:51 Antibiotics) Review of Systems Review of Systems Systems Reviewed: All systems reviewed, normal except as documented Past Medical History Past Medical History NEUROLOGIC: Positive Neurological Disorders and Seizures REPRODUCTIVE: Positive Genital Herpes and Previous Pregnancies PSYCHO/SOCIAL: Positive Post Traumatic Stress Disorder OTHER HISTORY: Positive Chicken Pox Family History FAMILY HISTORY: Positive Family Psychiatric Problems and Family Respiratory Disorders Surgical History SURGICAL: Positive Tubal Ligation Social History SMOKING STATUS: Never smoker SUBSTANCE USE: former substance user and marijuana (Continue to smoke daily) ED Exam Narrative Physical exam: Constitutional: Awake, alert, nontoxic, no acute distress HEENT: NC, AT, EOMI Neck: Tender to the posterior neck bilateral lateral aspects with decreased ROM due to pain CV: RRR, no m/r/g Lungs: CTAB, no w/r/r, no respiratory distress. Abd: Soft, NT, NT, no HSM noted to palpation Extremities: No deformities, no edema noted Neuro: AAOx3, CN 2-12 GIBL, no acute neuro deficit noted. Skin: Warm, dry, intact Course Course Course Narrative: 1230h: Labs reviewed as well as imaging. CT showing findings consistent with significant pansinusitis. Patient describes her symptoms as pain to her middle face/maxillary region bilaterally that then radiates up towards her head. The sinusitis may be the contributing factor to her headaches. Labs otherwise are generally unremarkable. Will give prescription for Moxifloxacin at this time and advised on outpatient follow-up with ENT. 1245h: On reassessment, the patient reports feeling much better. She is okay for discharge with antibiotics and PRN pain medication. Quality Measures none Orders Category Date Time Status Insert IV NOW Care 12/30/24 10:[address] facial bones wo con Stat Exams 12/30/24 11:[address] head/brain wo con Stat Exams 12/30/24 11:18 Completed C-Reactive Protein Stat Lab 12/30/24 10:20 Completed CBC Stat Lab 12/30/24 10:20 Completed CMP [Comprehensive Metabolic Panel] Stat Lab 12/30/24 10:20 Completed Drug Screen,Urine Stat Lab 12/30/24 10:56 Completed Procalcitonin Stat Lab 12/30/24 10:20 Completed UA, C/S IF [Urinalysis, C/S if Indicated] Stat Lab 12/30/24 10:56 Completed Acetaminophen Ivpb [Ofirmev Inj] Med 12/30/24 10:33 Discontinued 1,000 mg in 100 ml IV NOW Dexamethasone Inj [Decadron Inj] Med 12/30/24 12:48 Discontinued 10 mg IVP X1 ONE DiphenhydrAMINE INJ [Benadryl Inj] Med 12/30/24 10:33 Discontinued 25 mg IVP X1 ONE Ketorolac Inj [Toradol Inj] Med 12/30/24 11:17 Discontinued 30 mg IVP X1 ONE Metoclopramide Inj [Reglan Inj] Med 12/30/24 10:33 Discontinued 10 mg IVP X1 ONE Vital Signs Vital signs: Vital Signs Temperature 98.6 F 12/30/24 09:59 Pulse Rate 90 12/30/24 09:59 Respiratory Rate 18 12/30/24 09:59 Blood Pressure 130/83 12/30/24 09:59 Pulse Oximetry (%) 98 12/30/24 09:59 Oxygen Delivery Method Room Air 12/30/24 09:59 Pulse ox is 98% on room air which is adequate. Headache MDM Narrative MDM Narrative:: Amy Stephen am scribing for and in the presence of Dr. Longo. Patient data External records reviewed:: [facility] previous records Clinical information provided by:: patient Social determinants that could affect healthcare access:: none Patient has the following chronic illnesses:: none How is presenting disease/condition affected by chronic disease/condition?: no chronic disease Evaluation data The following diagnostics were reviewed and interpreted by me:: lab results and radiology exam(s) Lab and/or radiology exams considered but not ordered:: none Interpretation Summary: Examination: CT maxillofacial, without intravenous contrast. 2-D sagittal reconstructions. 3-D reconstructions. Date and time of exam:December 30, 2024, 1130 hours INDICATIONS: Facial pain headaches and rhinorrhea today CTDI: vol (mGy):18.5 DLP: (mGycm):349 Technique: Multiple axial images of maxillofacial region, 3.0 mm slice thickness. 2-D sagittal and coronal reconstructions. 3-D reconstructions. Low dose protocols were performed. One or more of the following dose reduction techniques were used; automated exposure control, adjustment of the mA and/or KV according to patient size, use of iterative reconstruction technique. Findings: Frontal chronic sinusitis including 4 mm retention cyst Prominent ethmoid chronic sinusitis with occlusion of the ostiomeatal complexes Marked mucosal thickening in the left nasal airway Moderate hypertrophy inferior nasal turbinates Mucosal thickening up to 4 mm in the maxillary antra Mucosal thickening up to 2 mm in the sphenoid air cells IMPRESSION: Chronic pansinusitis, most severe ethmoid air cells Bilateral occlusion of the ostiomeatal complexes Significant mucosal thickening in the left nasal airway. Medications / Prescriptions Medications or Prescriptions considered but not ordered:: none Medication administrations:: Medication Administration History Discontinued Medications Dexamethasone Sodium Phosphate (Dexamethasone Sod Phos Inj 10 Mg/Ml Vial) 10 mg IVP X1 ONE Stop: 12/30/24 12:49 Last Admin: 12/30/24 13:21 Dose: Not Given Documented By: EF Non-Admin Reason: Patient Refused Diphenhydramine HCl (Diphenhydramine Inj 50 Mg/Ml Vial) 25 mg IVP X1 ONE Stop: 12/30/24 10:34 Last Admin: 12/30/24 12:03 Dose: 25 mg Documented By: GM Acetaminophen (Ofirmev Inj) 1,000 mg in 100 mls @ 250 mls/hr IV NOW ONE Stop: 12/30/24 10:56 Last Infusion: 12/30/24 12:56 Dose: Infused Documented By: Admin: 12/30/24 12:07 Dose: 250 mls/hr Documented By: GM Ketorolac Tromethamine (Ketorolac Inj 30 Mg/Ml Vial) 30 mg IVP X1 ONE Stop: 12/30/24 11:18 Last Admin: 12/30/24 12:01 Dose: 30 mg Documented By: GM Metoclopramide HCl (Metoclopramide Inj 5 Mg/Ml Vial 2 Ml) 10 mg IVP X1 ONE; Protocol Stop: 12/30/24 10:34 Last Admin: 12/30/24 12:01 Dose: 10 mg Documented By: GM See above Consultations Consultation(s) initiated? (list below): No Diagnosis Differential diagnosis headache: migraine, tension headache, headache and sinusitis Most likely diagnosis given after review of the tests above:: Pansinusitis Headache Admission Indicated Admission indicated?: not indicated Admission Request Was there a request for admission?: No Disposition Plan Disposition Plan: Discharge Discharge Attestation Discharge Attestation: The patient and all family members were given an opportunity to ask questions and understood the discharge instructions. Discharge instructions specifically effects, indications for sooner follow up or return to the emergency department, and the expected course of current diagnosis. Patient condition: Stable Discharge Plan Plan Patient Disposition: HOME (Self Care) Patient condition on transfer: Stable Prescriptions/Referrals Prescriptions/Med Rec: New moxifloxacin 400 mg tablet 400 mg PO Q24H 10 Days Qty: 10 0RF prochlorperazine maleate [Compazine] 5 mg tablet 5 mg PO TID PRN (Reason: nausea and vomiting) Qty: 10 0RF ketorolac 10 mg tablet 10 mg PO Q8H PRN (Reason: pain) 5 Days Qty: 20 0RF Rx Instructions: maximum total duration of 5 days from all oral, intranasal, or parenteral formulations. Avoid other NSAIDs with this. No Action dexamethasone 4 mg tablet 4 mg PO QDAY Qty: 2 0RF acetaminophen 325 mg capsule 325 mg PO QID PRN (Reason: headache) Qty: 30 0RF Referrals: Ricardo Farias MD [Primary Care Provider, Family Practice] - In 1 week Geovanny Guevara MD [Referring Provider, Ear, Nose, Throat] - In 1 week Referral Note: chronic sinusitis Problem List Clinical Impression: Pansinusitis, Headache Patient/Caregiver Discharge Instructions Education Materials: Chronic Sinusitis, Self-Care for Sinusitis, Treating Chronic Sinusitis Additional Instructions: May also take tylenol 1g every 6 hours as needed for pain. Some general health principles that can benefit are the NEW START principles: Nutrition (plant-based, less processed foods) Exercise (daily as tolerated) Water (fresh water better for hydration rather than sodas, juice, etc) [place] (spend time in the skip load driver and late evening sun for your vitamin D) [place] (avoid alcohol, drugs, caffeinated beverages) Air (exposure to fresh air in nature daily when possible) Rest (adequate sleep at night, trying to go to bed no later than 9-10pm; good sleep hygiene - avoiding loud noises, phones, television prior to bed) Trust in God (spend time daily in prayer and reading scripture, contemplating a God of love) See additional resources at [email or web address], look under resources and seminars, as well as blogs. Print Language: Croatian Stand Alone Forms: [facility] Award Info., Patient Portal Info Letter
--- NOTE | 2024-12-30 11:18 | XR_ITS ---
Examination: CT maxillofacial, without intravenous contrast. 2-D sagittal reconstructions. 3-D reconstructions. Date and time of exam:December 30, 2024, 1130 hours INDICATIONS: Facial pain headaches and rhinorrhea today CTDI: vol (mGy):18.5 DLP: (mGycm):349 Technique: Multiple axial images of maxillofacial region, 3.0 mm slice thickness. 2-D sagittal and coronal reconstructions. 3-D reconstructions. Low dose protocols were performed. One or more of the following dose reduction techniques were used; automated exposure control, adjustment of the mA and/or KV according to patient size, use of iterative reconstruction technique. Findings: Frontal chronic sinusitis including 4 mm retention cyst Prominent ethmoid chronic sinusitis with occlusion of the ostiomeatal complexes Marked mucosal thickening in the left nasal airway Moderate hypertrophy inferior nasal turbinates Mucosal thickening up to 4 mm in the maxillary antra Mucosal thickening up to 2 mm in the sphenoid air cells IMPRESSION: Chronic pansinusitis, most severe ethmoid air cells Bilateral occlusion of the ostiomeatal complexes Significant mucosal thickening in the left nasal airway.
--- NOTE | 2024-12-30 11:18 | XR_ITS ---
Examination: CT brain head without contrast. 2-D sagittal coronal reconstructions Date and time of exam:December 30, 2024, 1130 hours, comparison November 16, 2024 INDICATIONS: Generalized head pain today CTDI: vol (mGy):47.9 DLP: (mGycm):38 Technique: Multiple CT axial sections of the brain have been obtained, 5 mm slice thickness. Contrast has not been administered. 2-D sagittal, coronal reconstructions have been obtained Low dose protocols were performed. One or more of the following dose reduction techniques were used; automated exposure control, adjustment of the mA and/or KV according to patient size, use of iterative reconstruction technique. Findings: No significant ventricular enlargement. Intra-axial or extra-axial hemorrhage density is not seen. No mass effect or midline shift Basal cisterns are not remarkable. Fourth ventricle is midline. Cranial vault intact. Moderate chronic ethmoid sinusitis Impression: Negative for acute hemorrhage, mass effect or midline shift As clinically warranted, if new onset headaches persist, consider brain MRI follow-up
[2024-12-30 11:37] LABS: C-Reactive Protein < 0.5 mg/dL (0.0-0.9); Procalcitonin 0.05 ng/ml (0.0-0.49)
[2024-12-30] MEDS: METOCLOPRAMIDE INJ 5 MG/ML VIAL 2 ML 10 MG IVP (12:01)
[2024-12-30] MEDS: KETOROLAC INJ 30 MG/ML VIAL IVP (12:01)
[2024-12-30] MEDS: ACETAMINOPHEN IVPB 1,000 MG/100 ML VIAL 250 MG IV (12:07)
[2024-12-30 12:19] LABS: Collection Type, Urine Clean Catch
[2024-12-30 12:39] LABS: Amphetamine/Methamp Scrn,U Negative (Negative); Barbiturate Screen,Urine Negative (Negative); Benzodiazepines Screen,Urine Negative (Negative); Benzoylecgonine Screen, Ur Negative (Negative); Fentanyl Screen,Urine Negative (Negative); Opiate Screen,Urine Negative (Negative); THC Screen,Urine Negative (Negative)
[2024-12-30 12:44] LABS: Bacteria,Urine Rare; Bilirubin,Urine Negative (Negative); Blood,Urine Negative (Negative); Color,Urine Lt-Yellow (Lt Yel-Yel); Culture Indicated,Urine Not Indicated; Glucose, Urine Negative (Negative); Ketones,Urine Negative (Negative); Leukocyte Esterase,Urine Negative (Negative); Nitrite,Urine Negative (Negative); PH,Urine 6.5 (5.0-7.0); Protein,Urine Negative (Neg - Trace); RBC,Urine 1 /hpf (0-3); Specific Gravity,Urine 1.012 (1.001-1.035); Squamous Epithelial Cell,Urine 18 /hpf (0-5); Urobilinogen,Urine Negative mg/dL (0.0-1.0); WBC,Urine < 1 /hpf (0-5)
[2024-12-30 12:57] VITALS: BP 107/62; PULSE 90; RESP 18; TEMP 36.9; O2SAT 100
[2024-12-30 12:57] LABS: Clarity,Urine Hazy (Clear/Hazy)
[2024-12-30 13:17] VITALS: BP 95/64; PULSE 96; RESP 18; TEMP 36.3; O2SAT 96
== END 2024-12-30 13:33 | disposition home or self-care (01) ==
PROVIDERS: Nurse Practitioner Family; Emergency Provider Family Medicine; PCP Family Medicine
DX: J32.4 Chronic pansinusitis (principal)
CPT/HCPCS: 36415; 70450; 70486; 80053; 80307; 81001; 84145; 85025; 86140; 96365; 96375; 99284; J0131; J1200; J1885; J2765